=== PATIENT | female | born 1965 | race African-American/Black ===

== ENCOUNTER 2016-09-22 13:05 | Observation (INO) | payer MEDICARE ==
[~2016-09-22] VITALS: Ht 167.6 cm; Wt 150.0 kg
[2016-09-22] VITALS (7 sets, daily range): BP systolic 143–196; BP diastolic 68–96; PULSE 100–110; RESP 16–24; TEMP 98.4–98.7; O2SAT 93–99
[~2016-09-22 13:05] MED LIST: ALBUAER3 INH; BETH10TA2 PO; CALC500C6 CHEW; COLA100C3 PO; DICY10CA12 PO; FURO1TAB62 PO; GABA300C5 PO; HYDR-3366 PO; LEVEMIR SQ; LISI40TA PO; METF500T PO; METO25TA3 PO; POTA-243 PO; VITA10002 PO; VITA100T54 PO
--- NOTE | 2016-09-22 14:08 | PD ---
Physical Exam Date Seen by Provider: September 22, 2016 Time Seen by Provider: 14:00 Narrative 51 y/o female with left sided chest pain, tingling, and pain into left arm, as well as chest pain. Pain is Sharp. Symptoms started 5 days ago, but has been getting worse over the weekend. No fever. Pain 5-6/10 now at rest. Worse with exertion. No improvement with Albuterol. Hx Heart Murmur at with yearly echocardiogram. hx Tachycardia. Hx type 2 dm. Hx Gastroparesis. B/P is elevated in triage. EKG ordered. Data Data Last Documented VS Vital Signs Date Time Temp Pulse Resp B/P Pulse Ox O2 Delivery O2 Flow Rate FiO2 09/22/16 13:07 98.4 108 24 196/96 98 Room Air [facility] Medical Record Reviewed: Yes Supervised Visit with SYLVAIN: Yes Condition: Stable Taran Motta September 22, 2016 14:07
[2016-09-22] MEDS ORDERED: SODIUM CHLORIDE 0.9% FLUSH 10 ML FLUSH IVF PRN (14:15)
[2016-09-22 14:28] LABS: AUTOMATED NEUTROPHIL # 3.7 TH/MM3 (1.8-7.7); BASOPHIL # 0.1 TH/MM3 (0-0.2); BASOPHIL % 1.2 % (0.0-2.0); EOSINOPHIL # 0.1 TH/MM3 (0-0.4); EOSINOPHIL % 1.7 % (0.0-4.0); HEMATOCRIT 35.9 % (35.0-46.0); HEMO FLAGS DIFF FINAL; LYMPH % 29.6 % (9.0-44.0); LYMPHOCYTE # 1.9 TH/MM3 (1.0-4.8); MEAN CELL VOLUME 82.8 FL (80.0-100.0); MEAN CORPUSCULAR HEMOGLOBIN 26.2 PG (27.0-34.0); MEAN CORPUSCULAR HGB CONC 31.6 % (32.0-36.0); NEUT % 57.5 % (16.0-70.0); PLATELET COUNT 290 TH/MM3 (150-450); RED BLOOD COUNT 4.33 MIL/MM3 (4.00-5.30); RED CELL DISTRIBUTION WIDTH 17.2 % (11.6-17.2); WHITE BLOOD COUNT 6.4 TH/MM3 (4.0-11.0)
[2016-09-22 14:35] LABS: APTT (PATIENT) 26.4 SEC (24.3-30.1); INTERNATIONAL NORMALIZED RATIO 0.9 RATIO; PROTHROMBIN TIME - PATIENT 10.1 SEC (9.8-11.6)
[2016-09-22 14:48] LABS: ANION GAP 5 MEQ/L (5-15); BICARBONATE 31.8 MEQ/L (21.0-32.0); BLOOD UREA NITROGEN 8 MG/DL (7-18); CHLORIDE 103 MEQ/L (98-107); GLOMERULAR FILTRATION RATE 95 ML/MIN (>89); MAGNESIUM 1.9 MG/DL (1.5-2.5); POTASSIUM 3.8 MEQ/L (3.5-5.1); SODIUM (NA) 140 MEQ/L (136-145)
[2016-09-22 14:53] LABS: CREATINE KINASE 152 U/L (26-192)
[2016-09-22 15:05] LABS: CKMB 1.7 NG/ML (0.5-3.6)
--- NOTE | 2016-09-22 15:18 | RADRPT ---
EXAM DATE/TIME: 09/22/2016 15:07 [facility] COMPARISON: No previous studies available for comparison. INDICATIONS : Pain in left chest, left arm and leg edema, short of breath MEDICAL HISTORY : pneumonia SURGICAL HISTORY : None. ENCOUNTER: Initial ACUITY: 4 - 6 days PAIN SCORE: 6/10 LOCATION: Left chest FINDINGS: AP and lateral views of the chest demonstrate the lungs to be symmetrically aerated without evidence of mass, infiltrate or effusion. The cardiomediastinal contours are unremarkable. Osseous structure s are intact. CONCLUSION: No acute disease. Linwood Schaeffer MD FACR on September 22, 2016 at 15:14 Board Certified Radiologist. This report was verified electronically.
[2016-09-22] MEDS ORDERED: HYDR-3580 PO (15:24)
[2016-09-22] MEDS ORDERED: BENZ1CAP34 PO (15:24)
[2016-09-22] MEDS ORDERED: ESOM1CAP6 PO (15:24)
[2016-09-22] MEDS ORDERED: CITRTAB7 PO (15:24)
[2016-09-22] MEDS ORDERED: GLIM2TAB PO (15:24)
[2016-09-22] MEDS ORDERED: ERGO1CAP10 PO (15:24)
[2016-09-22] MEDS ORDERED: CYCL1TAB29 PO (15:24)
[2016-09-22] MEDS ORDERED: FUROSEMIDE 40 MG/4 ML VIAL IVP ONE (15:30)
--- NOTE | 2016-09-22 15:42 | PD ---
HPI Chief Complaint: Cardiac Complaint Time Seen by Provider: 15:33 Travel History International Travel<30 days: No Contact w/Intl Traveler<30days: No Traveled to known affect area: No History of Present Illness HPI Patient is a 51-year-old female presenting to emergency for evaluation of chest pain. Patient states it started 5 days ago, on Thursday it started getting more consistent. Patient states the pain is in her left chest radiating to her left arm and around her left breast. She reports new onset shortness of breath with exertion reporting that she can only walk approximately 20 feet without getting tired. Patient states she has been using her albuterol inhaler due to the shortness of breath with no relief or improvement of symptoms. She also started taking Nexium [id number] assuming the pain was from acid reflux, again she had no relief of her symptoms with this medication. She'll he patient reports nausea, abdominal bloating. Denies any vomiting, diarrhea, headache. Patient reports that she had a heart murmur as a child and had been receiving yearly echocardiograms until a few years ago, she cannot remember the last time one was performed. At that time she was followed by Dr. Bob Romero the [facility]. His reports taking Lasix as needed for peripheral edema, she has not taken any recently. Past medical history significant for hypertension, type 2 diabetes, gastroparesis, asthma, DVT, hyperlipidemia, heart murmur, obesity. PFSH Past Medical History Arthritis: Yes Asthma: Yes Autoimmune Disease: No Anxiety: No Depression: No Heart Rhythm Problems: No Cancer: No Cardiac Catheterization: Yes High Cholesterol: Yes Chemotherapy: No Chest Pain: No Congestive Heart Failure: No COPD: No Cerebrovascular Accident: Yes (tia 2007) Diabetes: Yes Patient Takes Glucophage: Yes Diminished Hearing: No Gastrointestinal Disorders: Yes (GASTROPARESIS) GERD: Yes Glaucoma: Yes Genitourinary: No Hepatitis: No Hiatal Hernia: Yes Hypertension: Yes Immune Disorder: No Kidney Stones: No Respiratory: No Migraines: No Myocardial Infarction: No Radiation Therapy: No Renal Failure: No Seizures: No Sleep Apnea: Yes (NO CPAP) Thyroid Disease: No Ulcer: No ?: Not Menopausal: Yes : 1 Para: 1 Miscarriage: 0 : 0 Past Surgical History Abdominal Surgery: Yes (GASTRIC BYPASS, LOUISE N Y, BOWEL RESECTION, REPAIR UMBILICAL HERNIA) AICD: No Appendectomy: No Body Medical Devices: MESH UPPER AND LOWER ABDOMEN Cardiac Surgery: No Section: Yes Cholecystectomy: Yes Ear Surgery: No Endocrine Surgery: No Eye Surgery: No Genitourinary Surgery: No Hysterectomy: Yes (still have ovaries) Joint Replacement: Yes (05/14/15 RTK) Neurologic Surgery: No Oral Surgery: No Pacemaker: No Thoracic Surgery: No Tonsillectomy: Yes Social History Alcohol Use: No Tobacco Use: No Substance Use: No Allergies-Medications (Allergen,Severity, Reaction): Coded Allergies: No Known Allergies (Verified , 09/22/16) NKA Reported Meds & Prescriptions Reported Meds & Active Scripts Active Reported Benzonatate 200 Mg Cap 200 Mg PO TID PRN Glimepiride 2 Mg Tab 2 Mg PO BIDAC Flexeril (Cyclobenzaprine HCl) 10 Mg Tab 10 Mg PO HS Citracal + D3 Maximum (Calcium Citrate-Vitamin D) 315-250 Mg-Unit Tab 1 Tab PO BID Nexium 24 HR (Esomeprazole DR) 20 Mg Capdr 20 Mg PO DAILY Hydrocodone-Acetaminophen 7.5-325 mg Tab 1 Tab PO TID PRN Vitamin D (Ergocalciferol) 50,000 Unit Cap 50,000 Units PO Q7D Levemir Inj (Insulin Detemir) 1,000 unit/ 10 ML Vial 10 Units SQ DAILY Do not mix with any other Insulin. Bethanechol 10 Mg Tab 10 Mg PO TID Dicyclomine (Dicyclomine HCl) 10 Mg Cap 10 Mg PO TID Colace (Docusate Sodium) 100 Mg Cap 100 Mg PO DAILY Lasix (Furosemide) 20 Mg Tab 20 Mg PO DAILY Gabapentin 300 Mg Cap 300 Mg PO HS Lisinopril 40 Mg Tab 40 Mg PO DAILY Metformin (Metformin HCl) 500 Mg Tab 1,000 Mg PO BIDPC With meals Metoprolol Tartrate 25 Mg Tab 75 Mg PO BID Vitamin B-12 (Cyanocobalamin) 1,000 Mcg Tab 1,000 Mcg PO DAILY Klor-Con 10 (Potassium Chloride) 10 Meq Tab 10 Meq PO BID Proair Hfa 8.5 GM Inh (Albuterol Sulfate) 90 Mcg/Act Aer 2 Puff INH Q4-6H PRN 108 mcg/actuation Review of Systems Except as stated in HPI: all other systems reviewed are Neg General / Constitutional: No: Fever, Chills HENT: No: Headaches, Lightheadedness Cardiovascular: Positive: Chest Pain or Discomfort, Tachycardia, Dyspnea on exertion, Edema Respiratory: Positive: Shortness of Breath Gastrointestinal: Positive: Nausea, No: Vomiting, Diarrhea, Abdominal Pain Genitourinary: No: Dysuria Neurologic: No: Weakness, Dizziness, Syncope, Focal Abnormalities, Change in Mentation Physical Exam Narrative GENERAL: Obese, well-developed, alert female. Resting comfortably in no acute distress. SKIN: Focused skin assessment warm/dry. HEAD: Atraumatic. Normocephalic. EYES: Pupils equal and round. No scleral icterus. No injection or drainage. ENT: No nasal bleeding or discharge. Mucous membranes pink and moist. NECK: Trachea midline. No JVD. CARDIOVASCULAR: Regular rate and rhythm. 2/6 systolic murmur appreciated. RESPIRATORY: No accessory muscle use. Clear to auscultation. Breath sounds equal bilaterally, slightly diminished in bases. GASTROINTESTINAL: Abdomen soft, non-tender, nondistended. Hepatic and splenic margins not palpable. MUSCULOSKELETAL: No obvious deformities. No clubbing. No cyanosis. No edema. Positive pedal pulses, brisk less than 3 second capillary refill. NEUROLOGICAL: Awake and alert. No obvious cranial nerve deficits. Motor grossly within normal limits. Normal speech. PSYCHIATRIC: Appropriate mood and affect; insight and judgment normal. Data Data Last Documented VS Vital Signs Date Time Temp Pulse Resp B/P Pulse Ox O2 Delivery O2 Flow Rate FiO2 09/22/16 15:12 99 Room Air 09/22/16 15:12 22 09/22/16 13:07 98.4 108 196/96 Orders Electrocardiogram (09/22/16 14:05) Basic Metabolic Panel (Bmp) (09/22/16 14:09) B-Type Natriuretic Peptide (09/22/16 14:09) Ckmb (Isoenzyme) Profile (09/22/16 14:09) Complete Blood Count With Diff (09/22/16 14:09) Magnesium (Mg) (09/22/16 14:09) Prothrombin Time / Inr (Pt) (09/22/16 14:09) Act Partial Throm Time (Ptt) (09/22/16 14:09) Troponin I (09/22/16 14:09) Ecg Monitoring (09/22/16 14:09) Bilateral Bp Monitoring (09/22/16 14:09) Iv Access Insert/Monitor (09/22/16 14:09) Oximetry (09/22/16 14:09) Oxygen Administration (09/22/16 14:09) Sodium Chloride 0.9% Flush (Ns Flush) (09/22/16 14:15) CKMB (09/22/16 14:17) CKMB% (09/22/16 14:17) Chest, Ap & Lat (09/22/16 14:09) Furosemide Inj (Lasix Inj) (09/22/16 15:30) Admit Order (Ed Use Only) (09/22/16 15:52) Labs Laboratory Tests Test 09/22/16 14:17 White Blood Count 6.4 TH/MM3 Red Blood Count 4.33 MIL/MM3 Hemoglobin 11.3 GM/DL Hematocrit 35.9 % Mean Corpuscular Volume 82.8 FL Mean Corpuscular Hemoglobin 26.2 PG Mean Corpuscular Hemoglobin 31.6 % Concent Red Cell Distribution Width 17.2 % Platelet Count 290 TH/MM3 Mean Platelet Volume 7.9 FL Neutrophils (%) (Auto) 57.5 % Lymphocytes (%) (Auto) 29.6 % Monocytes (%) (Auto) 10.0 % Eosinophils (%) (Auto) 1.7 % Basophils (%) (Auto) 1.2 % Neutrophils # (Auto) 3.7 TH/MM3 Lymphocytes # (Auto) 1.9 TH/MM3 Monocytes # (Auto) 0.6 TH/MM3 Eosinophils # (Auto) 0.1 TH/MM3 Basophils # (Auto) 0.1 TH/MM3 CBC Comment DIFF FINAL Differential Comment Prothrombin Time 10.1 SEC Prothromb Time International 0.9 RATIO Ratio Activated Partial 26.4 SEC Thromboplast Time Sodium Level 140 MEQ/L Potassium Level 3.8 MEQ/L Chloride Level 103 MEQ/L Carbon Dioxide Level 31.8 MEQ/L Anion Gap 5 MEQ/L Blood Urea Nitrogen 8 MG/DL Creatinine 0.77 MG/DL Estimat Glomerular Filtration 95 ML/MIN Rate Random Glucose 128 MG/DL Calcium Level 8.9 MG/DL Magnesium Level 1.9 MG/DL Total Creatine Kinase 152 U/L Creatine Kinase MB 1.7 NG/ML Troponin I LESS THAN 0.02 NG/ML B-Type Natriuretic Peptide 7 PG/ML MDM Medical Decision Making Medical Screen Exam Complete: Yes Emergency Medical Condition: Yes Interpretation(s) Vital Signs Date Time Temp Pulse Resp B/P Pulse Ox O2 Delivery O2 Flow Rate FiO2 09/22/16 15:12 99 Room Air 09/22/16 15:12 22 99 Room Air 09/22/16 13:07 98.4 108 24 196/96 98 Room Air Differential Diagnosis Congestive heart failure versus AMI versus electrolyte abnormality versus musculoskeletal pain versus pleurisy versus pneumonia versus other Narrative Course Patient is a 51-year-old female presenting to the emergency department on the advice of her primary doctor for evaluation of chest pain. Pain started 5 days ago, initial set of cardiac enzymes are negative. Blood pressure was elevated while in triage, currently is 168/74 , heart rate is in the upper 80s. Patient did not take her blood pressure medications today and is requesting to take them. CBC is unremarkable Chemistry is unremarkable BNP 7 Coags are Unremarkable. Chest x-ray shows no acute disease. Lisinopril 20 mg by mouth and Lasix 40mg IV x 1 dose ordered. Due to patient's past medical history as well as her presenting symptoms and it is reasonable to place patient in observation in the chest pain center. Admit order placed, patient is agreeable. Diagnosis Primary Impression: Atypical chest pain Admitting Information Admitting Physician Requests: Observation Condition: Stable Miranda Kumar September 22, 2016 15:42
[2016-09-22] MEDS ORDERED: LISINOPRIL 20 MG TAB PO ONE (16:15)
[2016-09-22] MEDS ORDERED: ACETAMINOPHEN 500 MG CPLT PO PRN (16:30)
[2016-09-22] MEDS ORDERED: ONDANSETRON HCL 4 MG/2 ML VIAL IV PRN (16:30)
[2016-09-22] MEDS ORDERED: NITROGLYCERIN 0.4 MG SL 25 TABS/BTL SL PRN (16:30)
--- NOTE | 2016-09-22 16:57 | HHI.HP ---
[facility] Primary Care Physician Pratik Bruno MD Chief Complaint Chest pain History of Present Illness 51-year-old female with history diabetes, hypertension, hyperlipidemia, gastroparesis, asthma, and GERD presents to emergency room for further evaluation of multiple complaints including exertional shortness of breath, "whole left side swollen," and chest pain. Onset Thursday and noticed swelling of left side of body. Thursday morning she developed chest pain in left anterior chest described as quick, sharp pains. Duration 5-10 seconds. No radiation of pain however left arm was also "tingling" intermittently. No associated symptoms. Breathing did not make pain better or worse. No known trauma to chest wall. No known precipitating or relieving factors. Denies similar chest discomfort in the past. Endorses shortness of breath on exertion past few days. States chest pain and shortness of breath does not occur concurrently. She has been told she has asthma but she does not believe she has asthma. Has an albuterol inhaler and endorse increase in frequency over past few days. No recent fevers, chills, or illness. Also concerned left "whole body" is swollen and larger than right side of body. No change in ROM. Review of Systems General: No fatigue,weakness, fever, chills, or recent illness. HEENT: No BARBER, no vision changes, no nasal congestion or drainage, no dysphasia CV: As stated above. Denies any current chest pain or pressure. No palpitations or dizziness RESP: No SOB, cough, wheeze. History of asthma, however she does not believe she has asthma. GI: No nausea, vomiting, bowel changes, diarrhea, constipation, pain, distention , melena, blood in the stool. No change in appetite, no unintentional weight gain or weight loss. : No dysuria, urgency, frequency EXT: Reports left lower extremity, left arm, left breast, left flank swollen since Thursday. No paraesthesias MS: No discomfort no trauma, no recent fall, or change in ROM NEURO: No change in memory, dizziness, difficulty with balance, LOC, motor/ sensory deficits PSYCH: No anxiety or depression SKIN: No rashes, no concerning lesions Past Family Social History Allergies: Coded Allergies: No Known Allergies (Verified , 09/22/16) NKA Past Medical History Diabetes, peripheral neuropathy, GERD, gastroparesis, hypertension, hyperlipidemia, obesity, sleep apnea, asthma, DVT Past Surgical History Right total knee replacement, gastric bypass, umbilical hernia repair, hysterectomy, cholecystectomy Reported Medications Active Reported Benzonatate 200 Mg Cap 200 Mg PO TID PRN Glimepiride 2 Mg Tab 2 Mg PO BIDAC Flexeril (Cyclobenzaprine HCl) 10 Mg Tab 10 Mg PO HS Citracal + D3 Maximum (Calcium Citrate-Vitamin D) 315-250 Mg-Unit Tab 1 Tab PO BID Nexium 24 HR (Esomeprazole DR) 20 Mg Capdr 20 Mg PO DAILY Hydrocodone-Acetaminophen 7.5-325 mg Tab 1 Tab PO TID PRN Vitamin D (Ergocalciferol) 50,000 Unit Cap 50,000 Units PO Q7D Levemir Inj (Insulin Detemir) 1,000 unit/ 10 ML Vial 10 Units SQ DAILY Do not mix with any other Insulin. Bethanechol 10 Mg Tab 10 Mg PO TID Dicyclomine (Dicyclomine HCl) 10 Mg Cap 10 Mg PO TID Colace (Docusate Sodium) 100 Mg Cap 100 Mg PO DAILY Lasix (Furosemide) 20 Mg Tab 20 Mg PO DAILY Gabapentin 300 Mg Cap 300 Mg PO HS Lisinopril 40 Mg Tab 40 Mg PO DAILY Metformin (Metformin HCl) 500 Mg Tab 1,000 Mg PO BIDPC With meals Metoprolol Tartrate 25 Mg Tab 75 Mg PO BID Vitamin B-12 (Cyanocobalamin) 1,000 Mcg Tab 1,000 Mcg PO DAILY Klor-Con 10 (Potassium Chloride) 10 Meq Tab 10 Meq PO BID Proair Hfa 8.5 GM Inh (Albuterol Sulfate) 90 Mcg/Act Aer 2 Puff INH Q4-6H PRN 108 mcg/actuation Active Ordered Medications Current Medications Medications (Trade) Dose Ordered Sig/Hsalom Route Start Time Stop Time Status Last Admin (Tylenol) 500 mg Q4H PRN PO 09/22/16 16:30 (Zofran Inj) 4 mg Q6H PRN IV 09/22/16 16:30 (Nitrostat Sl) 0.4 mg Q5M PRN SL 09/22/16 16:30 (Aspirin) 325 mg DAILY PO 09/23/16 09:00 Family History BrotherCABG age 56 Social History Known hypertension, diabetes, and hyperlipidemia Lifelong nonsmoker. Denies any alcohol or illegal drug use. Normally active and can walk further distances without becoming short of breath. Ambulates independently without cane or walker. Past cardiac testing 06/04/15 Lucía scan negative for ischemia, hypokinesis of septal wall. EF 70%. Physical Exam Vital Signs Vital Signs Date Time Temp Pulse Resp B/P Pulse Ox O2 Delivery O2 Flow Rate FiO2 09/22/16 16:45 97 21 09/22/16 15:12 99 Room Air 09/22/16 15:12 22 99 Room Air 09/22/16 13:07 98.4 108 24 196/96 98 Room Air Physical Exam GENERAL: Alert WN, WD, NAD, pleasant, morbidly obese female HEAD: NC, AT EYES: Sclera clear, conjunctiva without injection NECK: Supple, no masses, trachea midline CV: RRR, without murmur, rub, gallop, no JVD, S1-S2 no S3-S4. RESP: Expiratory wheeze throughout, no crackles or rhonchi. symmetrical chest rise, nonlabored, able to speak in full sentences ABD: Soft, NT, ND, no masses, obese, positive bowel tones EXT: Pulses +24, +1 pitting dependent edema bilateral lower extremities. No significant left arm/breast/shoulder/abdomen edema compared to right. MS: Normal tone 4 extremities, nontender, no obvious deformities, full range of motion NEURO: CN II through CN XII grossly intact, motor strength 5/5, gait WNL PSYCH: A+O 3, pleasant affect, appropriate speech, appropriate mood and affect , insight and judgment SKIN: Normal turgor, normal texture, no lesions, no rashes, brisk cap refill, even hair distribution Laboratory Laboratory Tests Test 09/22/16 14:17 White Blood Count 6.4 Red Blood Count 4.33 Hemoglobin 11.3 Hematocrit 35.9 Mean Corpuscular Volume 82.8 Mean Corpuscular Hemoglobin 26.2 Mean Corpuscular Hemoglobin 31.6 Concent Red Cell Distribution Width 17.2 Platelet Count 290 Mean Platelet Volume 7.9 Neutrophils (%) (Auto) 57.5 Lymphocytes (%) (Auto) 29.6 Monocytes (%) (Auto) 10.0 Eosinophils (%) (Auto) 1.7 Basophils (%) (Auto) 1.2 Neutrophils # (Auto) 3.7 Lymphocytes # (Auto) 1.9 Monocytes # (Auto) 0.6 Eosinophils # (Auto) 0.1 Basophils # (Auto) 0.1 CBC Comment DIFF FINAL Differential Comment Prothrombin Time 10.1 Prothromb Time International 0.9 Ratio Activated Partial 26.4 Thromboplast Time Sodium Level 140 Potassium Level 3.8 Chloride Level 103 Carbon Dioxide Level 31.8 Anion Gap 5 Blood Urea Nitrogen 8 Creatinine 0.77 Estimat Glomerular Filtration 95 Rate Random Glucose 128 Calcium Level 8.9 Magnesium Level 1.9 Total Creatine Kinase 152 Creatine Kinase MB 1.7 Troponin I LESS THAN 0.02 B-Type Natriuretic Peptide 7 Result Diagram: 09/22/16 1417 09/22/16 1417 Imaging Last Impressions Chest X-Ray 09/22/16 1409 Signed Impressions: Service Date/Time: Thursday, September 22, 2016 15:07 - CONCLUSION: No acute disease. Linwood Schaeffer MD FACR Course EKG First EKG showed normal sinus tachycardia, normal axis, no ST or T-segment changes Assessment and Plan Assessment and Plan #1 Chest painadmitted to chest pain center. Will rule out with 3 sets of EKGs and cardiac enzymes. Seen and evaluated by Dr. Bob Romero. If ruled out with EKGs and cardiac enzymes plan for chemical stress test in a.m. Patient is agreeable to plan a care. #2 Asthma exacerbationSolu-Medrol 125 mg IV 1 dose now, albuterol respiratory treatments every 6 hours and every 2 when necessary #3 Diabetessliding scale insulin coverage, hold glipizide, metformin, and Levemir #4 Hypertensioncontinue metoprolol, lisinopril #5 GERDcontinue esomeprazole #6 Peripheral neuropathycontinue gabapentin Libby Childers September 22, 2016 16:57
[2016-09-22] MEDS ORDERED: GLUCAGON 1 MG/ML VIAL OTHER PRN (17:00)
[2016-09-22] MEDS ORDERED: DEXTROSE 50% IN WATER 50 ML VIAL(D50) IV PUSH PRN (17:00)
[2016-09-22] MEDS ORDERED: RESP: ALBUTEROL 2.5 MG/3 ML NEB (PRN) NEB (17:00)
[2016-09-22] MEDS ORDERED: methylPREDNISolone SOD SUCC 125 MG/2 ML VIAL IV PUSH ONE (17:00)
[2016-09-22 18:50] LABS: CREATINE KINASE 143 U/L (26-192)
[2016-09-22 19:03] LABS: CKMB 0.8 NG/ML (0.5-3.6)
[2016-09-22] MEDS: RESP: ALBUTEROL 2.5 MG/3 ML NEB (SCH) NEB (19:35)
[2016-09-22] MEDS ORDERED: GABAPENTIN 300 MG CAP PO SCH (21:00)
[2016-09-22] MEDS ORDERED: CYCLOBENZAPRINE HCL 10 MG TAB PO SCH (21:00)
[2016-09-22] MEDS: INSULIN ASPART SUPPLEMENTAL SCALE SQ SCH (21:12)
[2016-09-22] MEDS: POTASSIUM CHLORIDE 10 MEQ CONTROLLED RELEASE TAB PO SCH (21:13)
[2016-09-22] MEDS: METOPROLOL TARTRATE 25 MG TAB PO SCH (21:16)
[2016-09-22] MEDS: SODIUM CHLORIDE 0.9% FLUSH 10 ML FLUSH IV FLUSH SCH (21:16)
[2016-09-22 21:39] LABS: CREATINE KINASE 138 U/L (26-192)
[2016-09-22 21:51] LABS: CKMB 0.8 NG/ML (0.5-3.6)
[2016-09-23] VITALS (9 sets, daily range): BP systolic 124–139; BP diastolic 64–78; PULSE 82–96; RESP 18–20; TEMP 97.6–97.8; O2SAT 93–98
[2016-09-23] MEDS: RESP: ALBUTEROL 2.5 MG/3 ML NEB (SCH) NEB ×2 (03:01→10:00)
[2016-09-23] MEDS: INSULIN ASPART SUPPLEMENTAL SCALE SQ SCH ×2 (05:58→13:29)
[2016-09-23] MEDS: METOPROLOL TARTRATE 25 MG TAB PO SCH (08:37)
[2016-09-23] MEDS ORDERED: DOCUSATE SODIUM 100 MG CAP PO SCH (09:00)
[2016-09-23] MEDS ORDERED: PANTOPRAZOLE SOD 20 MG DELAYED RELEASE TAB PO SCH (09:00)
[2016-09-23] MEDS ORDERED: ASPIRIN 325 MG TAB PO SCH (09:00)
[2016-09-23] MEDS ORDERED: LISINOPRIL 20 MG TAB PO SCH (09:00)
[2016-09-23] MEDS ORDERED: FUROSEMIDE 20 MG TAB PO SCH (09:00)
[2016-09-23] MEDS ORDERED: REGADENOSON INJ 0.4 MG/5 ML SYR ONE (09:23)
[2016-09-23] MEDS: SODIUM CHLORIDE 0.9% FLUSH 10 ML FLUSH IV FLUSH SCH (11:17)
[2016-09-23] MEDS: DICYCLOMINE HCL 10 MG CAP PO SCH ×2 (11:18→13:00)
[2016-09-23] MEDS: BETHANECHOL CHL 10 MG TAB PO SCH ×2 (11:18→13:00)
[2016-09-23] MEDS: POTASSIUM CHLORIDE 10 MEQ CONTROLLED RELEASE TAB PO SCH (11:19)
--- NOTE | 2016-09-23 11:49 | RADRPT ---
EXAM DATE/TIME: 09/23/2016 09:16 [facility] COMPARISON: MYOCARDIAL PERF PHARM SPECT, GATED W/EF, June 04, 2015, 10:21. INDICATIONS : Substernal chest pain with dyspnea. Angina. DOSE: 35.0 mCi Tc99m Myoview at stress. 11.0 mCi Tc99m Myoview at rest. 0.4 mg Lexiscan STRESS SYMPTOMS: Nausea and heart racing. EJECTION FRACTION: 65% MEDICAL HISTORY : Hypertension. Diabetes mellitus type 2. Gastroesophageal reflux disease. Asthma. SURGICAL HISTORY : Hysterectomy. Cholecystectomy. Total knee replacement, right. Gastric bypass. ENCOUNTER: Initial ACUITY: 1 day PAIN SCALE: 7/10 LOCATION: Substernal chest TECHNIQUE: The patient underwent pharmacologic stress with infusion of prescribed dose. Continuous ECG tracing was monitored during stress. Gated SPECT imaging was performed after stress and conventional SPECT i maging was performed at rest. The examination was performed on a SPECT/CT scanner, both attenuation and non-corrected datasets were reviewed. FINDINGS: DISTRIBUTION: The maximum perfused segment at stress is in the anterior wall. PERFUSION STUDY: The pattern of perfusion at stress is within normal limits. GATED STUDY: There is intact wall motion and thickening without hypokinetic or dyskinetic segments. CONCLUSION: 1. Unremarkable myocardial perfusion scan. RISK CATEGORY: Low (<1% Annual Mortality Rate) Bob Ruiz MD on September 23, 2016 at 11:46 Board Certified Radiologist. This report was verified electronically.
--- NOTE | 2016-09-23 12:35 | HHI.DCPOC ---
Discharge Care Plan Diagnosis: (1) Chest pain (2) HTN (hypertension), benign (3) Diabetes (4) Asthma Goals to Promote Your Health * To prevent worsening of your condition and complications * To maintain your health at the optimal level Directions to Meet Your Goals Take your medications as prescribed Follow your dietary instruction Follow activity as directed Keep your appointments as scheduled Take your immunizations and boosters as scheduled If your symptoms worsen call your PCP, if no PCP go to Urgent Care Center or Emergency Room Smoking is Dangerous to Your Health. Avoid second hand smoke Call the 24-hour hour crisis hotline for domestic abuse at [facility] Thornton September 23, 2016 12:35
--- NOTE | 2016-09-23 17:22 | TR ---
Date Performed: 09/23/2016 Time Performed: 10:03:09 DOCTOR: Nora Garcia DRUG LIST: CLINICAL HISTORY: REASON FOR TEST: Angina REASON FOR ENDING: OBSERVATION: CONCLUSION: Lexiscan stress test was performed under standard four minute protocol. Radionuclid e was injected one minute prior to ending the test. No electrocardiographic abormalities were present to suggest ischemia. Nuclear imaging and interpretation are pending. COMMENTS:
--- NOTE | 2016-09-23 17:31 | EKG ---
Date Performed: 09/22/2016 Time Performed: 14:13:57 PTAGE: 51 years EKG: SINUS TACHYCARDIA ABNORMAL RHYTHM ECG PREVIOUS TRACING : 06/04/2015 01.46 Since previous tracing, no significant change noted DOCTOR: Nora Garcia Interpretating Date/Time 09/23/2016 17:29:09
--- NOTE | 2016-09-23 17:32 | EKG ---
Date Performed: 09/22/2016 Time Performed: 17:13:41 PTAGE: 51 years EKG: SINUS TACHYCARDIA ABNORMAL RHYTHM ECG Since PREVIOUS TRACING , no significant change noted PREVIOUS TRACIN09/22/2016 14.13 DOCTOR: Nora Garcia Interpretating Date/Time 09/23/2016 17:30:36
--- NOTE | 2016-09-23 17:33 | EKG ---
Date Performed: 09/22/2016 Time Performed: 20:25:21 PTAGE: 51 years EKG: SINUS TACHYCARDIA ABNORMAL RHYTHM ECG Since PREVIOUS TRACING , no significant change noted PREVIOUS TRACIN09/22/2016 17.13 DOCTOR: Nora Garcia Interpretating Date/Time 09/23/2016 17:31:50
== END 2016-09-23 14:47 | disposition home or self-care (01) ==
LOC: NEPC 13:05 → NEDA 15:54 → NEPFCDU 18:48
PROVIDERS: ADMIT Internal Medicine Cardiovascular Disease; ATTEND Internal Medicine Cardiovascular Disease
DX: R07.89 Other chest pain (principal); J45.901 Unspecified asthma with (acute) exacerbation; E11.42 Type 2 diabetes mellitus with diabetic polyneuropathy; I10 Essential (primary) hypertension; K21.9 Gastro-esophageal reflux disease without esophagitis; K31.84 Gastroparesis; J45.909 Unspecified asthma, uncomplicated; E78.5 Hyperlipidemia, unspecified; I82.509 Chronic embolism and thrombosis of unspecified deep veins of unspecified lower extremity; G47.30 Sleep apnea, unspecified; Z98.84 Bariatric surgery status; Z96.651 Presence of right artificial knee joint
CPT/HCPCS: 71020; 78452; 80048; 82550; 82552; 82948; 83735; 83880; 84484; 85025; 85610; 85730; 93005; 93017; 94640; 94664; 99285; A9502; G0378; J1815; J1940; J2785; J2930; J7613

== ENCOUNTER 2016-10-22 14:10 | Inpatient (IN) | payer MEDICARE, MEDICAID ==
[~2016-10-22] VITALS: Ht 167.6 cm; Wt 174.0 kg
[~2016-10-22 14:10] MED LIST changes: -ALBUAER3 INH; -CALC500C6 CHEW; +CITRTAB7 PO; -COLA100C3 PO; -HYDR-3366 PO; +HYDR-3580 PO; -LEVEMIR SQ; -VITA100T54 PO
--- NOTE | 2016-10-23 11:07 | MH ---
cc: Brandi ABDI M.D. DATE OF ADMISSION: 11/03/2016 DATE OF ADMISSION FOR SURGERY 11/03/2016 ADMISSION DIAGNOSIS Osteoarthritic degeneration left knee now being admitted for left total knee arthroplasty admission. HISTORY AND PHYSICAL This pleasant 51-year-old female is being admitted today for left total knee arthroplasty due to severe painful osteoarthritic degeneration of the left knee. PAST MEDICAL HISTORY Other past history: 1. The patient has history of arthritis. 2. Diabetes. 3. Heart murmur. 4. Hypertension. 5. Sleep apnea. CURRENT MEDICATIONS Include: 1. Benavides. 2. Metoprolol. 3. Metformin. PAST SURGICAL HISTORY Previous surgeries include: 1. Hysterectomy. 2. Hernia repair. 3. Tonsillectomy. SOCIAL HISTORY The patient does not smoke or drink. REVIEW OF SYSTEMS Noncontributory. FAMILY HISTORY Noncontributory. ALLERGIES NO KNOWN ALLERGIES. PHYSICAL EXAMINATION GENERAL: We find a 51-year-old female well-developed, well-nourished, alert and oriented times three complaining of pain in her left knee. VITAL SIGNS: Blood pressure 124/72, pulse 90 and regular, respirations 16, temperature 97.9, pulse oximetry 98% on room air. HEENT: Eyes PERRL, EOMI. Ears, nose, mouth clear. NECK: Supple. LUNGS: Clear. HEART: Regular rate. ABDOMEN: Soft. Positive bowel sounds and nontender. EXTREMITIES: Reveal the left knee to be tender with crepitance on range of motion. She is neurovascularly intact to her toes. IMPRESSION Severe painful osteoarthritic degeneration left knee. PLAN Admission for left total knee arthroplasty today. The patient understands the procedure well and risks involved and plans on going to rehab after surgery. She understands to use Hibiclens scrub and Bactroban preoperatively. MD NATANAEL Lang/[place] /6:14 PM /11:02 AM
[2016-10-27] MEDS ORDERED: NOVONP2 SQ ×2 (10:40)
[2016-10-27] MEDS ORDERED: PULM180I INH (10:40)
[2016-10-27] MEDS ORDERED: LEVEMIR SQ (10:40)
[2016-10-27] MEDS ORDERED: SIMV10TA PO (10:40)
[2016-10-27] MEDS ORDERED: GLIM4TAB PO (10:40)
[2016-10-27] MEDS ORDERED: ALBU.5I NEB (10:40)
[2016-10-27] MEDS ORDERED: FLUT1SPR5 EACH NARE (10:40)
[2016-11-03 12:10] VITALS: BP 129/95; PULSE 125; RESP 18; TEMP 99.2; O2SAT 98
[2016-11-03] MEDS ORDERED: VANCOMYCIN HCL 1000 MG VIAL ONE ×3 (12:23→16:21)
[2016-11-03] MEDS ORDERED: SODIUM CHLOR 0.9% 250 ML INJ 250 ML ONE ×2 (12:23→16:00)
[2016-11-03] MEDS ORDERED: CHLORHEXIDINE GLUCONATE 2 % 1 PACK (2 CLOTHS) TOPICAL PRN (12:30)
[2016-11-03] MEDS ORDERED: POVIDONE IODINE 5% (ANTISEPSIS KIT) 4 APPLICATIONS EACH NARE PRN (12:30)
[2016-11-03] MEDS ORDERED: METOPROLOL TARTRATE 25 MG TAB PO PRN (12:30)
[2016-11-03] MEDS ORDERED: LACTATED RINGER'S 1000 ML IV PRN (12:30)
[2016-11-03] MEDS ORDERED: SODIUM CHLORID 0.9% 500 ML IV PRN (12:30)
[2016-11-03] MEDS ORDERED: INSULIN HUMAN REGULAR 1,000 UNITS/10 ML VIAL SQ PRN (12:30)
[2016-11-03] MEDS ORDERED: METOPROLOL TARTRATE 25 MG TAB ONE (12:37)
[2016-11-03] MEDS ORDERED: CHLORHEXIDINE GLUCONATE 4% SOLN 120 ML BTL TOPICAL SCH (12:45)
[2016-11-03] MEDS ORDERED: METOPROLOL TARTRATE 25 MG TAB PO ONE (12:45)
[2016-11-03] MEDS ORDERED: VANCOMYCIN 1000 MG/NS 250 ML (for <70 kg) IV SCH ×2 (12:45)
[2016-11-03] MEDS ORDERED: ceFAZolin 2 GM PREMIX 50 ML IV SCH (12:45)
[2016-11-03] MEDS ORDERED: ONDANSETRON HCL 4 MG/2 ML VIAL IV PUSH ONE (12:58)
[2016-11-03] MEDS ORDERED: LACTATED RINGER'S 1000 ML INJ 1,000 ML IV ONE (12:58)
[2016-11-03] MEDS ORDERED: PROPOFOL 200 MG/20 ML AMP IV ONE (12:58)
[2016-11-03] MEDS ORDERED: [UNRECOGNIZED DRUG - OTHER] IV SCH ×2 (14:00)
[2016-11-03] MEDS ORDERED: EXPAREL PERI-ARTICULAR INJECTION (TOTAL VOL. 120 ML) P-ARTICULR SCH ×2 (14:00)
[2016-11-03] MEDS ORDERED: TRANEXAMIC ACID IV SCH ×3 (14:00→17:00)
[2016-11-03] MEDS ORDERED: ACETAMINOPHEN 1000 MG/100 ML VIAL IV ONE (14:34)
[2016-11-03] MEDS ORDERED: FAMOTIDINE 20 MG/2 ML VIAL ONE (14:34)
[2016-11-03] MEDS ORDERED: ACETAMINOPHEN 325 MG TAB PO PRN (14:45)
[2016-11-03] MEDS ORDERED: ONDANSETRON HCL 4 MG/2 ML VIAL IVP PRN (14:45)
[2016-11-03] MEDS ORDERED: NALOXONE HCL 0.4 MG/ML AMP IV PRN (14:45)
[2016-11-03] MEDS ORDERED: SODIUM CHLORIDE 0.9% FLUSH 5 ML FLUSH IVF PRN (14:45)
[2016-11-03] MEDS ORDERED: FUROSEMIDE 20 MG TAB PO PRN (14:45)
[2016-11-03] MEDS ORDERED: Post-op Orders (for Pharmacy) MISC XX ONE (14:45)
[2016-11-03] MEDS ORDERED: TRANEXAMIC ACID INJ 0 MG in SODIUM CHLORIDE 0.9% INJ 100 ML IV SCH (14:45)
[2016-11-03] MEDS ORDERED: TEMAZEPAM 15 MG CAP PO PRN (14:45)
[2016-11-03] MEDS ORDERED: ACETAMINOPHEN/HYDROcodone 325 MG/10 MG TAB PO PRN ×2 (14:45)
[2016-11-03] MEDS ORDERED: diphenhydrAMINE HCL 50 MG/ML VIAL IV PRN (14:45)
[2016-11-03] MEDS ORDERED: RESP: ALBUTEROL CONC 2.5 MG/0.5 ML NEB NEB PRN (14:45)
[2016-11-03] MEDS ORDERED: ceFAZolin INJ 1,000 MG VIAL ONE ×2 (14:50→15:55)
[2016-11-03] MEDS ORDERED: WALKER WHEELS/F1 MIS (15:00)
[2016-11-03] MEDS ORDERED: CPMMACHINE (15:00)
[2016-11-03] MEDS ORDERED: ADJUSTABLE COMM1 MIS (15:00)
--- NOTE | 2016-11-03 15:34 | PD.CONS ---
HPI Service [facility] Hospitalists Consult Requested By Primary Care Physician Pratik Bruno MD Diagnoses: History of Present Illness Pt is 51 yo with dm, sinus tach, htn who presented for elective left tka. In past after right tka she developed dvt. Pt reports recent hospitalization for pna and reactive airways and sent home on steroid taper which she completed. Also reports recent problems with bg control. 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 Review of Systems Other knee pain Past Family Social History Past Medical History sinus tach right peroneal dvt dm asthma htn hyperlipidemia gastroparesis gerd dm peripheral neuropathy oa knee gastric darron en y ventral hernia repair intussuseption. lysis of adhesion lap reny right tka right shoulder surgery carpal tunnel right surgery. Reported Medications Simvastatin 10 Mg Tab 10 Mg PO HS Levemir Inj (Insulin Detemir) 1,000 unit/ 10 ML Vial 30 Units SQ HS Do not mix with any other Insulin. novolog with meals and prn Flonase Nasal Bland (Fluticasone Nasal Bland) 50 Mcg/Act Bland 50 Mcg EACH NARE BID Pulmicort Flexhaler (Budesonide Powder Inh) 180 Mcg/Act Inhp 180 Mcg INH Q12HR PRN Albuterol Neb (Albuterol Sulfate) 2.5 Mg/0.5 Ml Neb 2.5 Mg NEB TID NEB PRN Note: The Albuterol Sulfate Inhalation Solution is concentrated and must be diluted. Read complete instructions carefully before using. Citracal + D3 Maximum (Calcium Citrate-Vitamin D) 315-250 Mg-Unit Tab 1 Tab PO BID Hydrocodone-Acetaminophen 7.5-325 mg Tab 1 Tab PO TID PRN Bethanechol 10 Mg Tab 10 Mg PO TID Dicyclomine (Dicyclomine HCl) 10 Mg Cap 10 Mg PO TID Lasix (Furosemide) 20 Mg Tab 20 Mg PO DAILY PRN Gabapentin 300 Mg Cap 300 Mg PO HS Lisinopril 40 Mg Tab 40 Mg PO DAILY Metformin (Metformin HCl) 500 Mg Tab 1,000 Mg PO HS With meals Metoprolol Tartrate 25 Mg Tab 75 Mg PO BID Vitamin B-12 (Cyanocobalamin) 1,000 Mcg Tab 1,000 Mcg PO DAILY Klor-Con 10 (Potassium Chloride) 10 Meq Tab 10 Meq PO BID PRN Allergies: Coded Allergies: No Known Allergies (Verified , 10/27/16) NKA Family History nc Social History no etoh/tob Physical Exam Vital Signs oriented heart reg/tachy lung cta abd s/nt ext no pitting Vital Signs Date Time Temp Pulse Resp B/P Pulse Ox O2 Delivery O2 Flow Rate FiO2 11/03/16 12:10 99.2 125 18 129/95 98 Laboratory Laboratory Tests Test 11/03/16 12:21 Blood Type O POSITIVE Antibody Screen NEGATIVE Crossmatch Leukocyte-Reduced Red Blood Cells Blood Bank Comment Assessment and Plan Problem List: (1) Total knee replacement status Status: Acute Plan: left tka 11/03 for OA post op pain control..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 (4) Gastroparesis Status: Chronic Plan: home meds (5) Asthma Status: Chronic Plan: duonebs prn (6) Sinus tachycardia Status: Chronic Plan: ee above (7) GERD (gastroesophageal reflux disease) Status: Chronic Problem Qualifiers (1) Total knee replacement status: Qualified Code: Z96.652 - Total knee replacement status, left (2) Diabetes: Jah Benson MD Nov 03, 2016 15:34
[2016-11-03] MEDS: INSULIN ASPART SUPPLEMENTAL SCALE SQ SCH ×2 (16:00→20:52)
[2016-11-03] MEDS ORDERED: BUDESONIDE 180 MCG INH PRN (16:00)
[2016-11-03] MEDS ORDERED: RESP: ALBUTEROL 2.5 MG/IPRATROPIUM 0.5 MG NEB (PRN) NEB (16:15)
[2016-11-03] MEDS ORDERED: SODIUM CHLORIDE 0.9% IV SCH (17:00)
[2016-11-03] MEDS ORDERED: DEXTROSE 50% IN WATER 50 ML VIAL(D50) IV PUSH PRN (17:30)
[2016-11-03] MEDS ORDERED: GLUCAGON 1 MG/ML VIAL OTHER PRN (17:30)
[2016-11-03] MEDS: DICYCLOMINE HCL 10 MG CAP PO SCH (18:00)
[2016-11-03] MEDS: BETHANECHOL CHL 10 MG TAB PO SCH (18:00)
[2016-11-03] MEDS: LACTATED RINGER'S 1000 ML INJ 1,000 ML IV SCH (19:05)
[2016-11-03] MEDS ORDERED: SUGAMMADEX SODIUM 200 MG/2 ML VIAL IV PUSH ONE ×2 (19:14)
[2016-11-03] MEDS ORDERED: fentaNYL CITRATE 250 MCG/5 ML AMP ONE (19:14)
[2016-11-03] MEDS ORDERED: MIDAZOLAM HCL 2 MG/2 ML VIAL ONE (19:14)
[2016-11-03] MEDS ORDERED: *morphine SULFATE 8 MG/ML PERIprocedure ONLY ONE (19:21)
--- NOTE | 2016-11-03 19:43 | RADRPT ---
EXAM DATE/TIME: 11/03/2016 19:18 [place] COMPARISON: No previous studies available for comparison. INDICATIONS : Post op left knee. MEDICAL HISTORY : None. SURGICAL HISTORY : None. ENCOUNTER: Initial ACUITY: 1 day PAIN SCORE: Non-responsive. LOCATION: Left knee FINDINGS: AP and lateral views of the left knee were obtained and demonstrate that the patient is status post a rthroplasty. The tibial and femoral components are intact and in normal alignment. Postoperative valdes ges involving the patella. There is soft tissue swelling and gas located anteriorly. CONCLUSION: Expected postoperative changes status post arthroplasty. Mayco Rodas MD on November 03, 2016 at 19:38 Board Certified Radiologist. This report was verified electronically.
[2016-11-03 20:00] VITALS: O2SAT 97
[2016-11-03 20:16] VITALS: BP 141/69; PULSE 122; RESP 18; TEMP 98.1; O2SAT 95
[2016-11-03] MEDS: SODIUM CHLORIDE 0.9% FLUSH 5 ML FLUSH IVF SCH (20:48)
[2016-11-03] MEDS: GABAPENTIN 300 MG CAP PO SCH (20:49)
[2016-11-03] MEDS: PRAVASTATIN SOD 20 MG TAB PO SCH (20:50)
[2016-11-03] MEDS: INSULIN DETEMIR 100 UNITS/ML VIAL SQ SCH (20:51)
[2016-11-03] MEDS: METOPROLOL TARTRATE 25 MG TAB PO SCH (20:56)
[2016-11-03] MEDS ORDERED: BUDESONIDE INH PRN (21:00)
[2016-11-03] MEDS ORDERED: NON-FORMULARY DRUG (Simvastatin 10 MG) PO SCH (21:00)
[2016-11-03] MEDS ORDERED: DO NOT ADM ANY ANTICOAGULANT DRUGS PRN (21:15)
[2016-11-03] MEDS ORDERED: POTASSIUM CHLORIDE 10 MEQ CONTROLLED RELEASE TAB PO PRN (22:00)
[2016-11-03] MEDS: PCA - TOTAL MG MORPHINE DELIVERED PER SHIFT SCH (22:00)
[2016-11-04] VITALS (7 sets, daily range): BP systolic 109–164; BP diastolic 64–95; PULSE 99–143; RESP 17–20; TEMP 97.2–100.9; O2SAT 96–100
[2016-11-04] MEDS: MORPHINE SULFATE 30 MG/30 ML PCA IV SCH ×2 (01:25→14:47)
[2016-11-04] MEDS: LACTATED RINGER'S 1000 ML INJ 1,000 ML IV SCH (03:30)
[2016-11-04] MEDS ORDERED: METOPROLOL TARTRATE 25 MG TAB PO ONE (04:00)
[2016-11-04] MEDS: PCA - TOTAL MG MORPHINE DELIVERED PER SHIFT SCH ×3 (05:58→22:00)
[2016-11-04] MEDS: METOPROLOL TARTRATE 25 MG TAB PO SCH ×2 (06:45→20:47)
[2016-11-04] MEDS: INSULIN ASPART SUPPLEMENTAL SCALE SQ SCH ×4 (07:02→21:02)
--- NOTE | 2016-11-04 08:06 | PD.ORT.PN ---
Subjective Subjective Remarks pt painful today. Objective Vitals Vital Signs Date Time Temp Pulse Resp B/P Pulse Ox O2 Delivery O2 Flow Rate FiO2 11/04/16 05:58 18 11/04/16 04:10 98.4 131 20 143/95 96 11/04/16 01:30 18 11/04/16 01:25 18 11/04/16 01:07 Nasal Cannula 3.00 11/04/16 00:40 97.2 137 19 142/92 99 11/03/16 22:00 18 11/03/16 20:16 98.1 122 18 141/69 95 11/03/16 20:00 97 Nasal Cannula 4.00 11/03/16 20:00 98.4 105 18 166/76 97 Nasal Cannula 4 11/03/16 19:49 107 23 174/81 96 Nasal Cannula 4 11/03/16 19:46 106 21 185/80 96 Nasal Cannula 4 11/03/16 19:45 106 22 188/77 95 Nasal Cannula 4 11/03/16 19:31 106 30 175/77 95 Nasal Cannula 4 11/03/16 19:30 106 28 181/80 94 Nasal Cannula 4 11/03/16 19:15 104 37 170/81 97 Nasal Cannula 4 11/03/16 19:07 105 29 150/80 98 Nasal Cannula 4 11/03/16 19:03 98.4 108 20 172/85 100 Nasal Cannula 4 11/03/16 12:10 99.2 125 18 129/95 98 I/O 11/03/16 11/03/16 11/03/16 11/04/16 11/04/16 11/04/16 07:00 15:00 23:00 07:00 15:00 23:00 Intake Total 1908 ml 603 ml Output Total 300 ml Balance 1608 ml 603 ml Intake Oral 240 ml 240 ml IV Total 368 ml 363 ml Other 1300 ml Output Estimated Blood Loss 300 ml # Voids 1 2 # Bowel Movements 0 0 Imaging Last 24 hours Impressions Knee X-Ray 11/03/16 1442 Signed Impressions: Service Date/Time: Thursday, November 03, 2016 19:18 - CONCLUSION: Expected postoperative changes status post arthroplasty. Mayco Rodas MD Objective Remarks Dressing dry and intact. No calf tenderness. Assessment & Plan Ortho Post Op Day #: 1 Problem List: Assessment and Plan PT OOB, watch pain meds today. Brandi Ma MD Nov 04, 2016 08:06
[2016-11-04 08:16] LABS: HEMATOCRIT 28.5 % (35.0-46.0); REVIEW FLAG FINAL
[2016-11-04] MEDS: SODIUM CHLORIDE 0.9% FLUSH 5 ML FLUSH IVF SCH ×2 (08:35→20:45)
[2016-11-04] MEDS: CALCIUM/VITAMIN D 250 MG/125 U TAB PO SCH ×2 (08:35→20:46)
[2016-11-04] MEDS: CYANOCOBALAMIN 1,000 MCG TAB PO SCH (08:36)
[2016-11-04] MEDS ORDERED: LISINOPRIL 20 MG TAB PO SCH (09:00)
[2016-11-04] MEDS: FLUTICASONE PROPIONATE 50 MCG/ACT 16 GM NASAL SPRAY NASAL SCH ×2 (10:21→21:04)
[2016-11-04] MEDS: DICYCLOMINE HCL 10 MG CAP PO SCH ×3 (10:21→18:12)
[2016-11-04] MEDS: BETHANECHOL CHL 10 MG TAB PO SCH ×3 (10:21→18:12)
[2016-11-04] MEDS ORDERED: CYCLOBENZAPRINE HCL 10 MG TAB PO ONE (12:15)
[2016-11-04] MEDS: ACETAMINOPHEN/HYDROcodone 325 MG/10 MG TAB PO PRN ×2 (12:28→20:46)
--- NOTE | 2016-11-04 13:22 | HHI.PR ---
Subjective Remarks Pt had increased pain/spasm in the left calf after getting up to go to the bathroom this morning. She had increased HR this morning and felt anxious This improved after Metoprolol 25mg around 0400 and 75mg dose at 0645 this morning. She then was given Siloam which seemed to help as well. Pts currently with HR in the low 100's on telemetry, sinus tachycardia. Objective Vitals Vital Signs Date Time Temp Pulse Resp B/P Pulse Ox O2 Delivery O2 Flow Rate FiO2 11/04/16 12:00 98.1 101 17 164/86 100 11/04/16 11:11 3.00 11/04/16 08:20 16 11/04/16 08:00 97.8 99 18 109/64 99 11/04/16 05:58 18 11/04/16 04:10 98.4 131 20 143/95 96 11/04/16 01:30 18 11/04/16 01:25 18 11/04/16 01:07 Nasal Cannula 3.00 11/04/16 00:40 97.2 137 19 142/92 99 11/03/16 22:00 18 11/03/16 20:16 98.1 122 18 141/69 95 11/03/16 20:00 97 Nasal Cannula 4.00 11/03/16 20:00 98.4 105 18 166/76 97 Nasal Cannula 4 11/03/16 19:49 107 23 174/81 96 Nasal Cannula 4 11/03/16 19:46 106 21 185/80 96 Nasal Cannula 4 11/03/16 19:45 106 22 188/77 95 Nasal Cannula 4 11/03/16 19:31 106 30 175/77 95 Nasal Cannula 4 11/03/16 19:30 106 28 181/80 94 Nasal Cannula 4 11/03/16 19:15 104 37 170/81 97 Nasal Cannula 4 11/03/16 19:07 105 29 150/80 98 Nasal Cannula 4 11/03/16 19:03 98.4 108 20 172/85 100 Nasal Cannula 4 11/03/16 11/03/16 11/04/16 15:00 23:00 07:00 Intake Total 1908 ml 603 ml Output Total 300 ml Balance 1608 ml 603 ml Intake Oral 240 ml 240 ml IV Total 368 ml 363 ml Other 1300 ml Output Estimated Blood Loss 300 ml # Voids 1 2 # Bowel Movements 0 0 Result Diagram: 11/04/16 0743 Other Results Laboratory Tests Test 11/03/16 11/04/16 12:21 07:43 Blood Type O POSITIVE Antibody Screen NEGATIVE Crossmatch Leukocyte-Reduced Red Blood Cells Blood Bank Comment Hemoglobin 9.1 GM/DL Hematocrit 28.5 % Imaging Last Impressions Knee X-Ray 11/03/16 1442 Signed Impressions: Service Date/Time: Thursday, November 03, 2016 19:18 - CONCLUSION: Expected postoperative changes status post arthroplasty. Mayco Rodas MD Objective Remarks General: NAD, AAOx3, anxious Chest: CTA Cardiac: Tachy, regular Abd: +BS, soft ND/NT Ext: Left knee bandages are c/d/i, RLE with some swelling. A/P Problem List: (1) Total knee replacement status Status: Acute Plan: - Pt s/p Left TKA on 11/03/16 with with Anil - Post-op pain control per Ortho - Add on Flexeril 10mg Q8H first dose now for spasms in her left calf after ambulation - IS - PT daily - Constipation precautions - DVT prophylaxis with Lovenox (2) Sinus tachycardia Status: Chronic Plan: - Pt with a hx of sinus tachycardia. - She is on Metoprolol 75mg po BID at home. - She reports that she has continued to have issues with tachycardia even prior to this admission with HR in the 120-130's with minimal exertion. - Will monitor HR today and if continues to be elevated may need to add an afternoon dose of Metoprolol for better control. - Telemetry (3) Diabetes Status: Chronic Plan: - Pt is on Levemir 30 units HS, NovoLog SSI, and also reported recently being started on Novolin 10 units TID with meals which was started on 10/30 - She had been having issues with blood sugar control prior to this admission because she had been on steroids for an "asthma attack" earlier this month and was hospitalized at . She is no longer on steroids but is still having issues with BS control. - We increased NovoLog SSI to high dose scale today - Cont. Levemir 30 units HS, if BS is still a problem we may need to add a morning dose of Levemir. - Accu checks. (4) HTN (hypertension), benign Status: Chronic Plan: - Cont. Lisinopril for now, monitor closely (5) Gastroparesis Status: Chronic (6) Asthma Status: Chronic Plan: - Duonebs Q2H PRN ordered - Pt had reportedly been hospitalized earlier this month at for an asthma exacerbation. - She has been on Budesonide PRN and Albuterol MDI PRN most recently (7) GERD (gastroesophageal reflux disease) Status: Chronic Plan: - PPI Assessment and Plan Patient examined. Assessment and plan formulated with Carmen Cabrera PA-C. I agree with the above. s/p left tka. still alot of pain/spasms in the left leg sinus tach. chronic and exacerbated. increase bb dm..uncontrolled bg. cont basal and increase novolog ssi. titrate basal levemir as needed. dvt prophylaxis. Problem Qualifiers (1) Total knee replacement status: Qualified Code: Z96.652 - Total knee replacement status, left (2) Diabetes: Carmen Cabrera Nov 04, 2016 13:22 Jah Benson MD Nov 04, 2016 15:34
[2016-11-04] MEDS: METOPROLOL TARTRATE 50 MG TAB PO SCH (14:47)
[2016-11-04] MEDS: ENOXAPARIN SODIUM 30 MG/0.3 ML SYRINGE SQ SCH (18:12)
[2016-11-04] MEDS: MULTIVITAMINS/MINERALS THERAPEUTIC TAB PO SCH (20:45)
[2016-11-04] MEDS: GABAPENTIN 300 MG CAP PO SCH (20:46)
[2016-11-04] MEDS: DOCUSATE SODIUM 100 MG CAP PO SCH (20:46)
[2016-11-04] MEDS: PRAVASTATIN SOD 20 MG TAB PO SCH (20:47)
[2016-11-04] MEDS ORDERED: metFORMIN HCL 500 MG TAB PO SCH (21:00)
[2016-11-04] MEDS: INSULIN DETEMIR 100 UNITS/ML VIAL SQ SCH (21:02)
[2016-11-05] VITALS (8 sets, daily range): BP systolic 105–134; BP diastolic 64–82; PULSE 98–127; RESP 18–20; TEMP 97.6–99.1; O2SAT 91–100
[2016-11-05] MEDS: ACETAMINOPHEN/HYDROcodone 325 MG/10 MG TAB PO PRN ×4 (03:28→18:18)
[2016-11-05] MEDS: PCA - TOTAL MG MORPHINE DELIVERED PER SHIFT SCH (05:25)
[2016-11-05] MEDS: ENOXAPARIN SODIUM 30 MG/0.3 ML SYRINGE SQ SCH ×2 (05:57→18:18)
[2016-11-05 07:26] LABS: HEMATOCRIT 28.9 % (35.0-46.0); REVIEW FLAG FINAL
[2016-11-05 07:47] LABS: BICARBONATE 28.3 MEQ/L (21.0-32.0)
--- NOTE | 2016-11-05 07:51 | PD.ORT.PN ---
Subjective Subjective Remarks pt less painful today. Objective Vitals Vital Signs Date Time Temp Pulse Resp B/P Pulse Ox O2 Delivery O2 Flow Rate FiO2 11/05/16 07:27 97.6 122 19 109/64 100 11/05/16 05:25 18 11/05/16 04:35 98.7 127 20 120/73 99 11/05/16 04:19 18 11/05/16 00:00 98.9 120 20 105/66 97 11/04/16 22:00 18 11/04/16 20:30 142 11/04/16 19:45 100.9 143 20 143/74 97 11/04/16 16:00 99.5 101 18 139/80 100 11/04/16 14:55 18 11/04/16 14:47 20 11/04/16 14:00 20 11/04/16 12:00 98.1 101 17 164/86 100 11/04/16 11:11 3.00 11/04/16 08:20 16 11/04/16 08:00 97.8 99 18 109/64 99 I/O 11/04/16 11/04/16 11/04/16 11/05/16 11/05/16 11/05/16 07:00 15:00 23:00 07:00 15:00 23:00 Intake Total 603 ml 720 ml 930 ml 645 ml Output Total 900 ml 850 ml Balance 603 ml -180 ml 80 ml 645 ml Intake Oral 240 ml 720 ml 460 ml 240 ml IV Total 363 ml 470 ml 405 ml Output Urine Total 900 ml 850 ml # Voids 2 3 1 # Bowel Movements 0 0 0 Result Diagram: 11/05/16 0548 11/05/16 0548 Imaging Last 24 hours Impressions Knee X-Ray 11/03/16 1442 Signed Impressions: Service Date/Time: Thursday, November 03, 2016 19:18 - CONCLUSION: Expected postoperative changes status post arthroplasty. Mayco Rodas MD Objective Remarks Dressing dry and intact. No calf tenderness. Assessment & Plan Ortho Post Op Day #: 2 Problem List: Assessment and Plan PT OOB, SNF tomorrow. Brandi Ma MD Nov 05, 2016 07:51
[2016-11-05] MEDS: INSULIN ASPART SUPPLEMENTAL SCALE SQ SCH ×4 (07:59→20:40)
[2016-11-05] MEDS: CALCIUM/VITAMIN D 250 MG/125 U TAB PO SCH ×2 (08:32→20:36)
[2016-11-05] MEDS: DOCUSATE SODIUM 100 MG CAP PO SCH ×2 (08:32→20:36)
[2016-11-05] MEDS: MULTIVITAMINS/MINERALS THERAPEUTIC TAB PO SCH ×2 (08:32→20:36)
[2016-11-05] MEDS: BETHANECHOL CHL 10 MG TAB PO SCH ×3 (08:32→18:18)
[2016-11-05] MEDS: CYANOCOBALAMIN 1,000 MCG TAB PO SCH (08:32)
[2016-11-05] MEDS: DICYCLOMINE HCL 10 MG CAP PO SCH ×3 (08:32→18:18)
[2016-11-05] MEDS: FLUTICASONE PROPIONATE 50 MCG/ACT 16 GM NASAL SPRAY NASAL SCH ×2 (08:32→20:44)
[2016-11-05] MEDS: METOPROLOL TARTRATE 25 MG TAB PO SCH ×2 (08:32→20:36)
[2016-11-05] MEDS: SODIUM CHLORIDE 0.9% FLUSH 5 ML FLUSH IVF SCH ×2 (08:36→20:44)
[2016-11-05] MEDS ORDERED: LISINOPRIL 20 MG TAB PO SCH (09:00)
[2016-11-05] MEDS ORDERED: BACITRACIN OINT 0.9 GM PKT TOP PRN (10:15)
--- NOTE | 2016-11-05 11:04 | HHI.PR ---
Subjective Remarks Pt much less anxious today and is less pain HR still elevated into the 120's fairly consistently BP low/normal this morning and Lisinopril was held Objective Vitals Vital Signs Date Time Temp Pulse Resp B/P Pulse Ox O2 Delivery O2 Flow Rate FiO2 11/05/16 07:27 97.6 122 19 109/64 100 11/05/16 07:18 Nasal Cannula 3.00 11/05/16 05:25 18 11/05/16 04:35 98.7 127 20 120/73 99 11/05/16 04:19 18 11/05/16 00:00 98.9 120 20 105/66 97 11/04/16 22:00 18 11/04/16 20:30 142 11/04/16 19:45 100.9 143 20 143/74 97 11/04/16 16:00 99.5 101 18 139/80 100 11/04/16 14:55 18 11/04/16 14:47 20 11/04/16 14:00 20 11/04/16 12:00 98.1 101 17 164/86 100 11/04/16 11:11 3.00 11/04/16 11/04/16 11/05/16 15:00 23:00 07:00 Intake Total 720 ml 930 ml 645 ml Output Total 900 ml 850 ml Balance -180 ml 80 ml 645 ml Intake Oral 720 ml 460 ml 240 ml IV Total 470 ml 405 ml Output Urine Total 900 ml 850 ml # Voids 3 1 # Bowel Movements 0 0 Result Diagram: 11/05/16 0548 11/05/16 0548 Other Results Laboratory Tests Test 11/03/16 11/04/16 11/05/16 12:21 07:43 05:48 Blood Type O POSITIVE Antibody Screen NEGATIVE Crossmatch Leukocyte-Reduced Red Blood Cells Blood Bank Comment Hemoglobin 9.1 GM/DL 9.1 GM/DL Hematocrit 28.5 % 28.9 % Sodium Level 138 MEQ/L Potassium Level 4.0 MEQ/L Chloride Level 102 MEQ/L Carbon Dioxide Level 28.3 MEQ/L Anion Gap 8 MEQ/L Blood Urea Nitrogen 8 MG/DL Creatinine 1.71 MG/DL Estimat Glomerular Filtration 38 ML/MIN Rate Random Glucose 195 MG/DL Calcium Level 8.8 MG/DL Imaging Last Impressions Knee X-Ray 11/03/16 1442 Signed Impressions: Service Date/Time: Thursday, November 03, 2016 19:18 - CONCLUSION: Expected postoperative changes status post arthroplasty. Mayco Rodas MD Objective Remarks General: NAD, AAOx3, anxious Chest: CTA Cardiac: Tachy, regular Abd: +BS, soft ND/NT Ext: Left knee bandages are c/d/i, RLE with some swelling. A/P Problem List: (1) Total knee replacement status Status: Acute Plan: - Pt s/p Left TKA on 11/03/16 with with Anil - Post-op pain control per Ortho - Flexeril 10mg Q8H PRN - IS - PT daily - Constipation precautions - DVT prophylaxis with Lovenox (2) Sinus tachycardia Status: Acute Plan: - Pt with a hx of sinus tachycardia. - She is on Metoprolol 75mg po BID at home. - We added an afternoon dose of Metoprolol 50mg at 1400 on 11/04/16 - She has continued to have issues with tachycardia with HR in the 120-130's with minimal exertion. - Stop the Lisinopril as we will likely need to titrate up on the Metoprolol - Telemetry (3) HTN (hypertension), benign Status: Chronic Plan: - Stop Lisinopril (4) Acute renal insufficiency Status: Acute Plan: - Pts Creatinine up to today, preop labs with Cr 0.69. - LISSETTE stopped - Pt Lasix was held yesterday - Encourage oral intake - Repeat labs in AM (5) Diabetes Status: Acute Plan: - Pt is on Levemir 30 units HS, NovoLog SSI, and also reported recently being started on Novolin 10 units TID with meals which was started on 10/30 - She had been having issues with blood sugar control prior to this admission because she had been on steroids for an "asthma attack" earlier this month and was hospitalized at . She is no longer on steroids but is still having issues with BS control. - We increased NovoLog SSI to high dose scale on 11/04 - Cont. Levemir 30 units HS and we will add Levemir 20 units in AM. - Accu checks. (6) Gastroparesis Status: Chronic Plan: - Cont. home meds (7) Asthma Status: Chronic Plan: - Duonebs Q2H PRN ordered - Pt had reportedly been hospitalized earlier this month at for an asthma exacerbation. - She has been on Budesonide PRN and Albuterol MDI PRN most recently (8) GERD (gastroesophageal reflux disease) Status: Chronic Assessment and Plan Patient examined. Assessment and plan formulated with Carmen Cabrera PA-C. I agree with the above. Problem Qualifiers (1) Total knee replacement status: Qualified Code: Z96.652 - Total knee replacement status, left (2) Diabetes: Carmne Cabrera Nov 05, 2016 11:04 Jah Benson MD Nov 06, 2016 10:21
[2016-11-05] MEDS: METOPROLOL TARTRATE 50 MG TAB PO SCH (13:57)
[2016-11-05] MEDS: CYCLOBENZAPRINE HCL 10 MG TAB PO PRN (15:50)
[2016-11-05] MEDS: PRAVASTATIN SOD 20 MG TAB PO SCH (20:36)
[2016-11-05] MEDS: GABAPENTIN 300 MG CAP PO SCH (20:36)
[2016-11-05] MEDS: INSULIN DETEMIR 100 UNITS/ML VIAL SQ SCH (20:40)
--- NOTE | 2016-11-05 23:01 | MP ---
cc: Brandi ABDI DATE OF SURGERY 11/03/2016 PREOPERATIVE DIAGNOSIS Osteoarthritic degeneration left knee. POSTOPERATIVE DIAGNOSIS Osteoarthritic degeneration left knee. SURGERY PERFORMED Left total knee arthroplasty using consensus components size with the pre made B spoke cutting guides, sizes 4 femur, 2 tibia, 1 patella and 10 insert and two batches of DePuy cement SURGEON Dr. David Abdi MANNEQUIN COLORING ARTIST ELVIS Sinha ANESTHESIA General intubation and block PROCEDURE: After successful induction of anesthesia, the patient is placed on the operating room table in the supine position. B spoke protocol was used. The knee is prepped and draped in the usual manner. No tourniquet was used throughout the case. A longitudinal incision is made extending from 3 inches proximal to the superior pole of the patella, across the patella in longitudinal fashion, and down past the insertion of the tibial tubercle into the proximal tibia. The incision is carried down through subcutaneous tissue along the medial aspect of the patella and retinaculum, down through the capsule to expose the knee joint. The patella and patellar tendon are freed up enough to allow the patella to be inverted and retracted off the lateral side of the knee joint. The knee joint is left exposed. Small osteophytes are removed. All soft tissue is removed to allow proper position of the femoral and tibial cutting jig guide. The first femoral jig is then inserted along the distal end of the femur after first measuring to decide whether this is a small, medium, or large component. The notch is then drilled and the tibial cutting guide inserted into the femoral cutting guide, along with the ankle brace to allow for proper measurement of the tibial cutting surface that needed to be resected. Pins are inserted into the tibial cutting jig and femoral cutting jig to hold them in place. An oscillating saw is then used to resect the surface of the tibia. The surface of the tibia is then completely removed using sharp and blunt dissection. The anterior and posterior cuts of the femur are then made as well using an oscillating saw through the cutting guide. All guides are then removed and the varus/valgus angulation cutting guide applied to the femur for proper measurement of the proper amount of valgus. The anterior cutting guide for the femur is then inserted at the anterior femoral cuts made. Next, the first block trial is inserted into the femur to allow for proper condyle drill holes to be made which are then made followed by removal of the bone between the condyles using an oscillating saw as well as the bone removed at the most posterior surface of the condyle. After this, this guide is removed and the chamfer cuts made using the chamfer cutting guide from both anterior and posterior. Next, the femoral trial is then inserted, the tibial surface reflected anterior to expose the tibial surface and a tibial stem guide is inserted after first measuring for a standard, standard plus, large, or large plus surface to be used. After the stem is impacted the trial tibial surface is applied followed by the trial meniscal components. After full range of motion is found with the appropriate length meniscal components varying the patella is prepared by resecting the posterior aspect of the patella using an oscillating saw, inserting a trial. The trial is then removed and the cruciate cutting guide applied using the bur to cut the cruciate cuts. After cruciate cuts are made all trials are removed. The wound is irrigated copiously with antibiotic solution and Water Pik and the actual components inserted into place using the aforementioned components. After the cement has hardened and the components are found to have full range of motion with no instability. The wound again is irrigated copiously with antibiotic solution, meticulous hemostasis achieved. Two Autovac tubes inserted. It should be noted that this patient was morbidly obese with a BMI of 55.3. This necessitated extra time for exposure and closure in many layers. The deep fascia was approximated with #2 quill, subcutaneous tissue approximated using interrupted running 2-0 and 4-0 Monocryl suture in layers, skin approximated with Steri-Strips. A sterile dressing applied, knee immobilizer could not be applied because of the morbid obesity. Shagufta LEAL was present during the entire procedure to include patient positioning and the procedure. Medical necessity of the nurse practitioner first calender worker was indicated in this case due to the surgical complexity of the case itself. During the surgical case, the surgical corsetier was working the back table while my director surgical ELVIS was directly assisting me. The patient tolerated procedure well. Estimated blood loss 300 mL. Sponge and suture count were correct. The patient left the operating room in satisfactory condition. J. MD NATANAEL Johnson/ /6:25 PM /10:49 PM
[2016-11-06] VITALS (8 sets, daily range): BP systolic 103–140; BP diastolic 56–83; PULSE 63–133; RESP 18–24; TEMP 97.6–99.2; O2SAT 97–99
[2016-11-06] MEDS: ACETAMINOPHEN/HYDROcodone 325 MG/10 MG TAB PO PRN ×5 (00:12→21:49)
[2016-11-06] MEDS: ENOXAPARIN SODIUM 30 MG/0.3 ML SYRINGE SQ SCH ×2 (05:59→17:08)
[2016-11-06] MEDS: CYCLOBENZAPRINE HCL 10 MG TAB PO PRN ×2 (06:04→17:14)
[2016-11-06] MEDS: INSULIN ASPART SUPPLEMENTAL SCALE SQ SCH ×4 (06:06→21:48)
[2016-11-06 06:20] LABS: BASOPHIL % 0.4 % (0.0-2.0); EOSINOPHIL # 0.2 TH/MM3 (0-0.4); EOSINOPHIL % 1.8 % (0.0-4.0); HEMATOCRIT 26.2 % (35.0-46.0); HEMO FLAGS DIFF FINAL; LYMPH % 14.6 % (9.0-44.0); LYMPHOCYTE # 1.3 TH/MM3 (1.0-4.8); MEAN CELL VOLUME 83.3 FL (80.0-100.0); MEAN CORPUSCULAR HEMOGLOBIN 26.4 PG (27.0-34.0); MEAN CORPUSCULAR HGB CONC 31.7 % (32.0-36.0); MONO % 13.9 % (0.0-8.0); NEUT % 69.3 % (16.0-70.0); PLATELET COUNT 271 TH/MM3 (150-450); RED BLOOD COUNT 3.14 MIL/MM3 (4.00-5.30); RED CELL DISTRIBUTION WIDTH 17.9 % (11.6-17.2); WHITE BLOOD COUNT 8.6 TH/MM3 (4.0-11.0)
[2016-11-06 06:39] LABS: BICARBONATE 30.2 MEQ/L (21.0-32.0); POTASSIUM 3.6 MEQ/L (3.5-5.1)
[2016-11-06] MEDS ORDERED: BISACODYL 10 MG SUPP RECTAL PRN (09:45)
[2016-11-06] MEDS: CALCIUM/VITAMIN D 250 MG/125 U TAB PO SCH ×2 (09:54→21:49)
[2016-11-06] MEDS: METOPROLOL TARTRATE 100 MG TAB PO SCH ×2 (09:54→21:46)
[2016-11-06] MEDS: MULTIVITAMINS/MINERALS THERAPEUTIC TAB PO SCH ×2 (09:55→21:00)
[2016-11-06] MEDS: FLUTICASONE PROPIONATE 50 MCG/ACT 16 GM NASAL SPRAY NASAL SCH ×2 (09:55→21:49)
[2016-11-06] MEDS: BETHANECHOL CHL 10 MG TAB PO SCH ×3 (09:55→17:08)
[2016-11-06] MEDS: DICYCLOMINE HCL 10 MG CAP PO SCH ×3 (09:55→17:08)
[2016-11-06] MEDS: CYANOCOBALAMIN 1,000 MCG TAB PO SCH (09:55)
[2016-11-06] MEDS: SODIUM CHLORIDE 0.9% FLUSH 5 ML FLUSH IVF SCH ×2 (09:55→21:00)
[2016-11-06] MEDS: DOCUSATE SODIUM 100 MG CAP PO SCH ×2 (09:55→21:49)
[2016-11-06] MEDS: INSULIN DETEMIR 100 UNITS/ML VIAL SQ SCH ×2 (10:00→21:47)
--- NOTE | 2016-11-06 10:20 | HHI.PR ---
Subjective Remarks in hallway on walker with PT Objective Vitals heart reg lung cta abd s/nt ext no edema Vital Signs Date Time Temp Pulse Resp B/P Pulse Ox O2 Delivery O2 Flow Rate FiO2 11/06/16 09:51 97 21 11/06/16 08:00 98.7 133 24 137/75 98 11/06/16 06:44 Room Air 11/06/16 04:55 99.2 123 18 116/62 97 11/06/16 00:50 99.0 121 18 140/83 97 11/05/16 21:08 95 21 11/05/16 20:25 119 11/05/16 20:00 99.1 120 18 116/64 96 11/05/16 15:40 98.4 113 20 134/74 96 11/05/16 11:44 98.0 98 19 134/82 91 11/05/16 11/05/16 11/06/16 15:00 23:00 07:00 Intake Total 600 ml 240 ml 240 ml Balance 600 ml 240 ml 240 ml Intake Oral 600 ml 240 ml 240 ml # Voids 3 1 1 # Bowel Movements 0 0 0 Result Diagram: 11/06/16 0542 11/06/16 0542 Imaging Last Impressions Knee X-Ray 11/03/16 1442 Signed Impressions: Service Date/Time: Thursday, November 03, 2016 19:18 - CONCLUSION: Expected postoperative changes status post arthroplasty. Mayco Rodas MD A/P Problem List: (1) Total knee replacement status Status: Acute Plan: - Pt s/p Left TKA on 11/03/16 with with Anil - Post-op pain control per Ortho - Flexeril 10mg Q8H PRN - IS - PT daily - Constipation precautions - DVT prophylaxis with Lovenox d/c to snf tomorrow. hold today due to multiple medication adjustments (2) Sinus tachycardia Status: Acute Plan: - Pt with a hx of sinus tachycardia. - She is on Metoprolol 75mg po BID at home. - We added an afternoon dose of Metoprolol 50mg at 1400 on 11/04/16 - She has continued to have issues with tachycardia with HR in the 120-130's with minimal exertion. - Stop the Lisinopril as we will likely need to titrate up on the Metoprolol - increase to 100mg po bid lopressor and keep 2pm 50mg. (3) Acute renal insufficiency Status: Acute Plan: - cr improved - LISSETTE stopped - Pt Lasix was held yesterday - Encourage oral intake (4) Diabetes Status: Acute Plan: - Pt is on Levemir 30 units HS, NovoLog SSI, and also reported recently being started on Novolin 10 units TID with meals which was started on 10/30 - She had been having issues with blood sugar control prior to this admission because she had been on steroids for an "asthma attack" earlier this month and was hospitalized at . She is no longer on steroids but is still having issues with BS control. - We increased NovoLog SSI to high dose scale on 11/04 - Cont. Levemir 30 units HS and we will add Levemir 20 units in AM. - Accu checks. (5) HTN (hypertension), benign Status: Chronic Plan: - Stop Lisinopril (6) GERD (gastroesophageal reflux disease) Status: Chronic (7) Asthma Status: Chronic Plan: - Duonebs Q2H PRN ordered - Pt had reportedly been hospitalized earlier this month at for an asthma exacerbation. - She has been on Budesonide PRN and Albuterol MDI PRN most recently (8) Gastroparesis Status: Chronic Plan: - Cont. home meds Problem Qualifiers (1) Total knee replacement status: Qualified Code: Z96.652 - Total knee replacement status, left (2) Diabetes: Jha Benson MD Nov 06, 2016 10:20
--- NOTE | 2016-11-06 11:49 | PD.ORT.PN ---
Subjective Subjective Remarks pt comfortable at present. Objective Vitals Vital Signs Date Time Temp Pulse Resp B/P Pulse Ox O2 Delivery O2 Flow Rate FiO2 11/06/16 10:03 100 11/06/16 09:51 97 21 11/06/16 08:00 98.7 133 24 137/75 98 11/06/16 06:44 Room Air 11/06/16 04:55 99.2 123 18 116/62 97 11/06/16 00:50 99.0 121 18 140/83 97 11/05/16 21:08 95 21 11/05/16 20:25 119 11/05/16 20:00 99.1 120 18 116/64 96 11/05/16 15:40 98.4 113 20 134/74 96 I/O 11/05/16 11/05/16 11/05/16 11/06/16 11/06/16 11/06/16 07:00 15:00 23:00 07:00 15:00 23:00 Intake Total 645 ml 600 ml 240 ml 240 ml Balance 645 ml 600 ml 240 ml 240 ml Intake Oral 240 ml 600 ml 240 ml 240 ml IV Total 405 ml # Voids 1 3 1 1 # Bowel Movements 0 0 0 0 Result Diagram: 11/06/16 0542 11/06/16 0542 Imaging Last 24 hours Impressions Knee X-Ray 11/03/16 1442 Signed Impressions: Service Date/Time: Thursday, November 03, 2016 19:18 - CONCLUSION: Expected postoperative changes status post arthroplasty. Mayco Rodas MD Objective Remarks Dressing dry and intact. No calf tenderness. Assessment & Plan Ortho Post Op Day #: 3 Problem List: Assessment and Plan PT OOB, SNF tomorrow per medical. Brandi Ma MD Nov 06, 2016 11:49
[2016-11-06] MEDS: METOPROLOL TARTRATE 50 MG TAB PO SCH (14:15)
[2016-11-06] MEDS: GABAPENTIN 300 MG CAP PO SCH (21:46)
[2016-11-06] MEDS: PRAVASTATIN SOD 20 MG TAB PO SCH (21:48)
[2016-11-06] MEDS: SENNOSIDES 8.6 MG TAB PO PRN (21:49)
[2016-11-06] MEDS: MAGNESIUM HYDROXIDE SUSP 30 ML CUP PO PRN (21:49)
[2016-11-07 00:07] VITALS: BP 126/55; PULSE 102; RESP 19; TEMP 98.6; O2SAT 96
[2016-11-07] MEDS: ACETAMINOPHEN/HYDROcodone 325 MG/10 MG TAB PO PRN ×4 (02:53→16:31)
[2016-11-07 04:58] VITALS: BP 137/67; PULSE 107; RESP 18; TEMP 98.7; O2SAT 98
[2016-11-07] MEDS: ENOXAPARIN SODIUM 30 MG/0.3 ML SYRINGE SQ SCH ×2 (06:43→16:30)
[2016-11-07] MEDS: INSULIN ASPART SUPPLEMENTAL SCALE SQ SCH ×3 (06:48→16:00)
[2016-11-07 07:02] VITALS: PULSE 102
[2016-11-07 08:00] VITALS: BP 132/59; PULSE 109; RESP 18; TEMP 97.3; O2SAT 97
[2016-11-07] MEDS: BETHANECHOL CHL 10 MG TAB PO SCH ×3 (08:36→16:30)
[2016-11-07] MEDS: DICYCLOMINE HCL 10 MG CAP PO SCH ×3 (08:36→16:30)
[2016-11-07] MEDS: MULTIVITAMINS/MINERALS THERAPEUTIC TAB PO SCH (08:36)
[2016-11-07] MEDS: FLUTICASONE PROPIONATE 50 MCG/ACT 16 GM NASAL SPRAY NASAL SCH (08:36)
[2016-11-07] MEDS: CALCIUM/VITAMIN D 250 MG/125 U TAB PO SCH (08:36)
[2016-11-07] MEDS: MAGNESIUM HYDROXIDE SUSP 30 ML CUP PO PRN (08:37)
[2016-11-07] MEDS: DOCUSATE SODIUM 100 MG CAP PO SCH (08:37)
[2016-11-07] MEDS: INSULIN DETEMIR 100 UNITS/ML VIAL SQ SCH (08:37)
[2016-11-07] MEDS: CYANOCOBALAMIN 1,000 MCG TAB PO SCH (08:37)
[2016-11-07] MEDS: METOPROLOL TARTRATE 100 MG TAB PO SCH (08:37)
[2016-11-07] MEDS: CYCLOBENZAPRINE HCL 10 MG TAB PO PRN (08:37)
[2016-11-07] MEDS: SENNOSIDES 8.6 MG TAB PO PRN (08:37)
[2016-11-07] MEDS: SODIUM CHLORIDE 0.9% FLUSH 5 ML FLUSH IVF SCH (08:43)
--- NOTE | 2016-11-07 09:33 | HHI.PR ---
Subjective Remarks doing well no compaints Objective Vitals heart reg lung cta abd s/nt ext no pitting Vital Signs Date Time Temp Pulse Resp B/P Pulse Ox O2 Delivery O2 Flow Rate FiO2 11/07/16 08:43 Room Air 11/07/16 08:00 97.3 109 18 132/59 97 11/07/16 07:02 102 11/07/16 04:58 98.7 107 18 137/67 98 11/07/16 00:07 98.6 102 19 126/55 96 11/06/16 20:05 98.4 115 20 117/65 98 11/06/16 19:14 Room Air 11/06/16 16:00 98.9 63 22 103/64 99 11/06/16 12:00 97.6 100 22 109/56 99 11/06/16 10:03 100 11/06/16 09:51 97 21 11/06/16 11/06/16 11/07/16 15:00 23:00 07:00 Intake Total 360 ml 360 ml 480 ml Balance 360 ml 360 ml 480 ml Intake Oral 360 ml 360 ml 480 ml # Voids 1 1 2 # Bowel Movements 0 0 Result Diagram: 11/06/16 0542 11/06/16 0542 Imaging Last Impressions Knee X-Ray 11/03/16 1442 Signed Impressions: Service Date/Time: Thursday, November 03, 2016 19:18 - CONCLUSION: Expected postoperative changes status post arthroplasty. Mayco Rodas MD A/P Problem List: (1) Total knee replacement status Status: Acute Plan: - Pt s/p Left TKA on 11/03/16 with with Anil - Post-op pain control per Ortho - Flexeril 10mg Q8H PRN - IS - PT daily - Constipation precautions - DVT prophylaxis with Lovenox d/c to snf. (2) Sinus tachycardia Status: Acute Plan: - Pt with a hx of sinus tachycardia. - She is on Metoprolol 75mg po BID at home. - We added an afternoon dose of Metoprolol 50mg at 1400 on 11/04/16 - She has continued to have issues with tachycardia with HR in the 120-130's with minimal exertion. - Stop the Lisinopril - increase to 100mg po bid lopressor and keep 2pm 50mg. (3) Acute renal insufficiency Status: Acute Plan: - cr improved - LISSETTE stopped - Pt Lasix was held yesterday - Encourage oral intake (4) Diabetes Status: Acute Plan: - Pt is on Levemir 30 units HS, NovoLog SSI, and also reported recently being started on Novolin 10 units TID with meals which was started on 10/30 - She had been having issues with blood sugar control prior to this admission because she had been on steroids for an "asthma attack" earlier this month and was hospitalized at . She is no longer on steroids but is still having issues with BS control. - We increased NovoLog SSI to high dose scale on 11/04 - Cont. Levemir 30 units HS and we will add Levemir 20 units in AM. This may need further titration at [facility]. (5) HTN (hypertension), benign Status: Chronic Plan: - Stop Lisinopril (6) GERD (gastroesophageal reflux disease) Status: Chronic (7) Asthma Status: Chronic Plan: - Duonebs Q2H PRN ordered - Pt had reportedly been hospitalized earlier this month at for an asthma exacerbation. - She has been on Budesonide PRN and Albuterol MDI PRN most recently (8) Gastroparesis Status: Chronic Plan: - Cont. home meds Problem Qualifiers (1) Total knee replacement status: Qualified Code: Z96.652 - Total knee replacement status, left (2) Diabetes: Jah Benson MD Nov 07, 2016 09:33
[2016-11-07] MEDS ORDERED: LEVEMIR SQ ×2 (09:44→09:52)
[2016-11-07] MEDS ORDERED: METO-338 PO (09:44)
[2016-11-07] MEDS ORDERED: IPRASOL NEB (09:44)
[2016-11-07] MEDS ORDERED: METO-309 PO (09:44)
[2016-11-07] MEDS ORDERED: HYDR-3580 PO (09:44)
[2016-11-07] MEDS ORDERED: CYCL1TAB29 PO (09:44)
[2016-11-07] MEDS ORDERED: REST15CA PO (09:44)
[2016-11-07] MEDS ORDERED: ENOX30P SQ (09:44)
--- NOTE | 2016-11-07 09:46 | PD.ORT.PN ---
Subjective Subjective Remarks pt comfortable at present. Objective Vitals Vital Signs Date Time Temp Pulse Resp B/P Pulse Ox O2 Delivery O2 Flow Rate FiO2 11/07/16 08:43 Room Air 11/07/16 08:00 97.3 109 18 132/59 97 11/07/16 07:02 102 11/07/16 04:58 98.7 107 18 137/67 98 11/07/16 00:07 98.6 102 19 126/55 96 11/06/16 20:05 98.4 115 20 117/65 98 11/06/16 19:14 Room Air 11/06/16 16:00 98.9 63 22 103/64 99 11/06/16 12:00 97.6 100 22 109/56 99 11/06/16 10:03 100 11/06/16 09:51 97 21 I/O 11/06/16 11/06/16 11/06/16 11/07/16 11/07/16 11/07/16 07:00 15:00 23:00 07:00 15:00 23:00 Intake Total 240 ml 360 ml 360 ml 480 ml Balance 240 ml 360 ml 360 ml 480 ml Intake Oral 240 ml 360 ml 360 ml 480 ml # Voids 1 1 1 2 # Bowel Movements 0 0 0 Result Diagram: 11/06/16 0542 11/06/16 0542 Imaging Last 24 hours Impressions Knee X-Ray 11/03/16 1442 Signed Impressions: Service Date/Time: Thursday, November 03, 2016 19:18 - CONCLUSION: Expected postoperative changes status post arthroplasty. Mayco Rodas MD Objective Remarks Dressing dry and intact. No calf tenderness.Sitting up in chair today. Assessment & Plan Ortho Post Op Day #: 4 Problem List: Assessment and Plan PT OOB, SNF today. Brandi Ma MD Nov 07, 2016 09:45
--- NOTE | 2016-11-07 09:52 | HHI.DCPOC ---
Discharge Care Plan Diagnosis: (1) Total knee replacement status (2) Sinus tachycardia (3) Diabetes (4) Gastroparesis (5) HTN (hypertension), benign (6) GERD (gastroesophageal reflux disease) (7) Hyperlipidemia (8) Diabetic peripheral neuropathy associated with type 2 diabetes mellitus Goals to Promote Your Health * To prevent worsening of your condition and complications * To maintain your health at the optimal level Directions to Meet Your Goals Take your medications as prescribed Follow your dietary instruction Follow activity as directed Keep your appointments as scheduled Take your immunizations and boosters as scheduled If your symptoms worsen call your PCP, if no PCP go to Urgent Care Center or Emergency Room Smoking is Dangerous to Your Health. Avoid second hand smoke Call the 24-hour hour crisis hotline for domestic abuse at Jah Benson MD Nov 07, 2016 09:52
[2016-11-07 11:36] VITALS: PULSE 94
[2016-11-07 12:00] VITALS: BP 121/58; PULSE 98; RESP 18; TEMP 97.9; O2SAT 96
[2016-11-07] MEDS ORDERED: LACTULOSE SYRUP 20 GM/30 ML CUP PO ONE (13:00)
--- NOTE | 2016-11-07 13:01 | HHI.DS ---
Discharge Summary Admission Date Nov 03, 2016 at 11:53 Discharge Date: Nov 07, 2016 Admitting Diagnosis Osteoarthritic degeneration left knee Diagnosis: (1) Total knee replacement status Diagnosis: Principal Brief History This is a 51 year old female patient CBC/BMP: 11/06/16 0542 11/06/16 0542 Significant Findings Laboratory Tests Test 11/05/16 11/06/16 05:48 05:42 Hemoglobin 9.1 GM/DL 8.3 GM/DL (11.6-15.3) (11.6-15.3) Hematocrit 28.9 % 26.2 % (35.0-46.0) (35.0-46.0) Creatinine 1.71 MG/DL (0.50-1.00) Estimat Glomerular Filtration 38 ML/MIN (>89) Rate Random Glucose 195 MG/DL 193 MG/DL (74-106) (74-106) Red Blood Count 3.14 MIL/MM3 (4.00-5.30) Mean Corpuscular Hemoglobin 26.4 PG (27.0-34.0) Mean Corpuscular Hemoglobin 31.7 % Concent (32.0-36.0) Red Cell Distribution Width 17.9 % (11.6-17.2) Monocytes (%) (Auto) 13.9 % (0.0-8.0) Monocytes # (Auto) 1.2 TH/MM3 (0-0.9) PE at Discharge Dressing dry and intact. No calf tenderness.Sitting up in chair today. Hospital Course Patient underwent a left total knee arthroplasty on day of admission. She received a course of prophylactic IV antibiotics and within 23 hours started on anticoagulation therapy. She remained afebrile vital signs mostly stable but with a high heart rate for which she had a medical consult with the hospitalist who managed this. She continued to improve began out of bed tolerating food and fluid well. She continued to improve and was discharged to [facility] on the fourth postoperative day in good condition with instructions for continuation of therapy and daily wound care. She was managed well on by mouth pain meds. Pt Condition on Discharge: Good Discharge Disposition: Discharge to SNF Discharge Instructions Diet Instructions: Diabetic Diet Activities You Can Perform: Full Weight Bearing, Shower Only-No Bath Activities to Avoid: Bathing, Driving Brandi Ma MD Nov 07, 2016 13:00
[2016-11-07] MEDS: METOPROLOL TARTRATE 50 MG TAB PO SCH (13:07)
== END 2016-11-07 18:16 | DRG 470 ==
LOC: UNDOADMIN 11-03 05:40 → HSDI 11-03 05:40 → N06A 11-03 20:36
PROVIDERS: ADMIT Surgery; ATTEND Surgery
PROC: 3E0T3BZ Introduction of Anesthetic Agent into Peripheral Nerves and Plexi, Percutaneous Approach (ICD-10-PCS; 2016-11-03)
PROC: 0SRD0J9 Replacement of Left Knee Joint with Synthetic Substitute, Cemented, Open Approach (ICD-10-PCS; principal; 2016-11-03 15:04)
DX: M17.12 Unilateral primary osteoarthritis, left knee (principal); E11.42 Type 2 diabetes mellitus with diabetic polyneuropathy; Z79.84 Long term (current) use of oral hypoglycemic drugs; Z68.43 Body mass index [BMI] 50.0-59.9, adult; E66.01 Morbid (severe) obesity due to excess calories; K31.84 Gastroparesis; I10 Essential (primary) hypertension; G47.30 Sleep apnea, unspecified; K21.9 Gastro-esophageal reflux disease without esophagitis; E78.5 Hyperlipidemia, unspecified; R00.0 Tachycardia, unspecified; N28.9 Disorder of kidney and ureter, unspecified; J45.909 Unspecified asthma, uncomplicated; Z86.718 Personal history of other venous thrombosis and embolism; Z96.651 Presence of right artificial knee joint
CPT/HCPCS: 73560; 76937; 80048; 82948; 83735; 85014; 85018; 85025; 86850; 86900; 86901; 86920; 86922; 94150; 94664; C1776; C9290; J0131; J0690; J1200; J1650; J1815; J2250; J2270; J2405; J3010; J3370; J7050; J7120; L1830

== ENCOUNTER → 2016-10-24 | Outpatient (CLI) | payer MEDICARE ==
[~2016-10-24] MED LIST changes: +ADJUSTABLE COMM1 MIS; +ALBU.5I NEB; +ALBUAER3 INH; +BENZ1CAP34 PO; +COLA100C3 PO; +CPMMACHINE; +CYCL1TAB29 PO; +ENOX30P SQ; +ERGO1CAP10 PO; +ESOM1CAP6 PO; +FLUT1SPR5 EACH NARE; +GLIM2TAB PO; +GLIM4TAB PO; +IPRASOL NEB; +LEVEMIR SQ; +METO-309 PO; +METO-338 PO; +NOVONP2 SQ; +PULM180I INH; +REST15CA PO; +SIMV10TA PO; +WALKER WHEELS/F1 MIS
--- NOTE | 2016-10-28 08:54 | RSPPFT ---
DATE OF PROCEDURE: 10/24/16 COMMENTS: Spirometry shows FVC of 2.2 predicted 3.4, FEV1 of 1.7 predicted 2.6, FEV1/FVC ratio 78% predicted 75%. Lung volumes show a decreased in the TLC at 3.8 predicted 5.4. DLCO is 81% of predicted. IMPRESSION: On the basis of the above, patient has a restrictive lung defect. The flow volume loop is not satisfactory and this interpretation should be regarded with caution and in clinical context.
== END ==
LOC: HRSP 09:31
PROVIDERS: ATTEND Internal Medicine Pulmonary Disease
DX: J45.909 Unspecified asthma, uncomplicated (principal)
CPT/HCPCS: 94060; 94620; 94726; 94729

== ENCOUNTER → 2016-10-27 | Outpatient (CLI) | payer MEDICARE ==
[~2016-10-27] MED LIST changes: -ADJUSTABLE COMM1 MIS; -CPMMACHINE; -ENOX30P SQ; -IPRASOL NEB; -METO-309 PO; -METO-338 PO; -REST15CA PO; -WALKER WHEELS/F1 MIS
[2016-10-27 10:12] LABS: AUTOMATED NEUTROPHIL # 3.3 TH/MM3 (1.8-7.7); BASOPHIL % 0.6 % (0.0-2.0); EOSINOPHIL # 0.1 TH/MM3 (0-0.4); HEMATOCRIT 34.5 % (35.0-46.0); HEMO FLAGS DIFF FINAL; LYMPH % 30.4 % (9.0-44.0); LYMPHOCYTE # 1.8 TH/MM3 (1.0-4.8); MEAN CELL VOLUME 81.8 FL (80.0-100.0); MEAN CORPUSCULAR HEMOGLOBIN 26.2 PG (27.0-34.0); MEAN CORPUSCULAR HGB CONC 32.1 % (32.0-36.0); MONO % 11.8 % (0.0-8.0); NEUT % 55.2 % (16.0-70.0); PLATELET COUNT 301 TH/MM3 (150-450); RED BLOOD COUNT 4.21 MIL/MM3 (4.00-5.30); RED CELL DISTRIBUTION WIDTH 17.6 % (11.6-17.2); WHITE BLOOD COUNT 5.9 TH/MM3 (4.0-11.0)
[2016-10-27 10:21] LABS: APTT (PATIENT) 27.5 SEC (24.3-30.1); INTERNATIONAL NORMALIZED RATIO 0.9 RATIO; PROTHROMBIN TIME - PATIENT 10.2 SEC (9.8-11.6)
[2016-10-27 10:32] LABS: ANION GAP 12 MEQ/L (5-15); AST (GOT) 16 U/L (15-37); BICARBONATE 26.1 MEQ/L (21.0-32.0); BLOOD UREA NITROGEN 8 MG/DL (7-18); CHLORIDE 102 MEQ/L (98-107); GLOMERULAR FILTRATION RATE 108 ML/MIN (>89); GLUCOSE,FASTING 183 MG/DL (74-99); SODIUM (NA) 140 MEQ/L (136-145)
[2016-10-27 10:34] LABS: ALT (GPT) 24 U/L (10-53)
[2016-10-27 10:35] LABS: BACTERIA, URINE RARE /hpf; BLOOD, URINE MOD (NEG); GLUCOSE,URINE NEG (NEG); KETONE, URINE NEG (NEG); MUCUS URINE FEW /lpf (OCC); NITRITE,URINE NEG (NEG); SQUAMOUS EPITHELIAL CELL URINE 3 /hpf (0-5); URINE COLOR YELLOW (YELLW/STRAW)
[2016-10-27 10:36] LABS: ALKALINE PHOSPHATASE 130 U/L (45-117); TOTAL BILIRUBIN ADULT 0.4 MG/DL (0.2-1.0)
[2016-10-27 10:37] LABS: COMMENT (UR) CATH-CULTURE IND; CULTURE IF INDICATED CATH CULTURE IND
== END ==
LOC: CPRE 09:28
PROVIDERS: ATTEND Surgery
DX: Z01.812 Encounter for preprocedural laboratory examination (principal); R82.99 Other abnormal findings in urine
CPT/HCPCS: 36415; 80053; 81001; 85025; 85610; 85730; 87086

== ENCOUNTER 2017-03-13 16:10 | Emergency (ER) | payer MEDICARE ==
[~2017-03-13] VITALS: Ht 167.6 cm; Wt 145.0 kg
[~2017-03-13 16:10] MED LIST changes: +ADJUSTABLE COMM1 MIS; -ALBUAER3 INH; -BENZ1CAP34 PO; -COLA100C3 PO; +CPMMACHINE; +CYCL10TA PO; -CYCL1TAB29 PO; +ENOX30P SQ; -ERGO1CAP10 PO; -ESOM1CAP6 PO; -GLIM2TAB PO; -GLIM4TAB PO; +IPRASOL NEB; +KLOR10TA PO; -LISI40TA PO; +METO-309 PO; +METO-338 PO; -METO25TA3 PO; -NOVONP2 SQ; -POTA-243 PO; +REST15CA PO; +WALKER WHEELS/F1 MIS
[2017-03-13 16:15] VITALS: BP 221/110; PULSE 101; RESP 18; TEMP 98.7; O2SAT 98
--- NOTE | 2017-03-13 16:23 | PD ---
HPI Chief Complaint: Abdominal Pain Time Seen by Provider: 16:21 Travel History International Travel<30 days: No Contact w/Intl Traveler<30days: No Traveled to known affect area: No History of Present Illness HPI The patient is a 52-year-old female who presents to the emergency department for possible appendicitis. The patient notes a 3 month history of right lower quadrant abdominal pain, received a CT of her abdomen and pelvis on an outpatient yesterday by her log skidder, Dr. Perez. The patient was called today stating that she has appendicitis and needs to see his surgeon today. The patient has [facility], was advised that Dr. hunt the general surgeon group reservations coordinator. The patient's normal general surgeon who has performed multiple hernia repairs and her gastric bypass is Dr. Lozano. The patient does note 3 months the right lower quadrant abdominal pain with a few intermittent episodes of nausea and vomiting. The patient does have multiple previous abdominal surgeries for hernia repair with mesh as well as gastric bypass via Louise-en-Y. The patient's last meal was at 1 PM, peanut butter and jelly sandwiches with herminio arsh. The patient states the eating did not exacerbate her pain today. She does state her last episode of nausea and vomiting was yesterday. Does complain of continuing right lower quadrant abdominal pain without any fever, chills, or sweats. She denies any dysuria. PFSH Past Medical History Arthritis: Yes Asthma: Yes Autoimmune Disease: No Anxiety: No Depression: No Heart Rhythm Problems: No Cancer: No Cardiac Catheterization: Yes Cardiovascular Problems: Yes (TACHYCARDIA ) High Cholesterol: Yes Chemotherapy: No Chest Pain: No Congestive Heart Failure: No COPD: No Cerebrovascular Accident: Yes (2007) Diabetes: Yes Diminished Hearing: No Endocrine: Yes Gastrointestinal Disorders: Yes (GASTROPARESIS) GERD: Yes Glaucoma: Yes Genitourinary: No Hepatitis: No Hiatal Hernia: Yes Hypertension: Yes Immune Disorder: No Kidney Stones: No Musculoskeletal: Yes (CONGENITAL ARTHRITIS, 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--HAS HAD NO SURGERY) Neurologic: Yes (2007) Psychiatric: Yes (CLAUSTROPHOBIC) Reproductive: Yes (HX HYSTERECTOMY ) Respiratory: No Migraines: No Myocardial Infarction: No Radiation Therapy: No Renal Failure: No Seizures: No Sleep Apnea: Yes (NO CPAP) Thyroid Disease: No Ulcer: No Menopausal: Yes : 1 Para: 1 Miscarriage: 0 : 0 Past Surgical History Abdominal Surgery: Yes (GASTRIC BYPASS, LOUISE N Y, BOWEL RESECTION, REPAIR UMBILICAL HERNIA) AICD: No Appendectomy: No Body Medical Devices: MESH UPPER AND LOWER ABDOMEN Cardiac Surgery: No Section: Yes Cholecystectomy: Yes Ear Surgery: No Endocrine Surgery: No Eye Surgery: No Genitourinary Surgery: No Gynecologic Surgery: Yes (HYSTERECTOMY) Hysterectomy: Yes (still have ovaries) Joint Replacement: Yes (05/14/15 RTK) Neurologic Surgery: No Oral Surgery: No Pacemaker: No Thoracic Surgery: No Tonsillectomy: Yes Social History Alcohol Use: No Tobacco Use: No Substance Use: No Allergies-Medications (Allergen,Severity, Reaction): Coded Allergies: No Known Allergies (Verified , 10/27/16) NKA Reported Meds & Prescriptions Reported Meds & Active Scripts Active Levemir Inj (Insulin Detemir) 1,000 unit/ 10 ML Vial 30 Units SQ DIRECTED levemir 20 units morning levemir 30 units bedtime Restoril (Temazepam) 15 Mg Cap 15 Mg PO HS PRN Duoneb (Ipratropium-Albuterol Neb) 0.5-2.5 Mg/3 Ml Neb 1 Ampule NEB Q2HR NEB PRN 10 Days Flexeril (Cyclobenzaprine HCl) 10 Mg Tab 10 Mg PO Q8H PRN Hydrocodone-Acetaminophen 7.5-325 mg Tab 1 Tab PO Q4HR PRN Reported Novolin R Inj (Insulin Human Regular) 1,000 Unit/10 Ml Vial 40 Units SQ BID Novolin N Inj (Insulin Human NPH) 1,000 Unit/10 Ml Vial 15 Units SQ ACHS Lopressor (Metoprolol Tartrate) 50 Mg Tab 75 Mg PO BID Simvastatin 10 Mg Tab 10 Mg PO HS Flonase Nasal [place] (Fluticasone Nasal [place]) 50 Mcg/Act [place] 50 Mcg EACH NARE BID Pulmicort Flexhaler (Budesonide Powder Inh) 180 Mcg/Act Inhp 180 Mcg INH Q12HR PRN Albuterol Neb (Albuterol Sulfate) 2.5 Mg/0.5 Ml Neb 2.5 Mg NEB TID NEB PRN Note: The Albuterol Sulfate Inhalation Solution is concentrated and must be diluted. Read complete instructions carefully before using. Citracal + D3 Maximum (Calcium Citrate-Vitamin D) 315-250 Mg-Unit Tab 1 Tab PO BID Bethanechol 10 Mg Tab 10 Mg PO TID Dicyclomine (Dicyclomine HCl) 10 Mg Cap 10 Mg PO TID Lasix (Furosemide) 20 Mg Tab 20 Mg PO DAILY PRN Gabapentin 300 Mg Cap 300 Mg PO HS Metformin (Metformin HCl) 500 Mg Tab 1,000 Mg PO HS With meals Vitamin B-12 (Cyanocobalamin) 1,000 Mcg Tab 1,000 Mcg PO DAILY Klor-Con 10 (Potassium Chloride) 10 Meq Tab 10 Meq PO BID PRN Review of Systems Except as stated in HPI: all other systems reviewed are Neg General / Constitutional: No: Fever Cardiovascular: No: Chest Pain or Discomfort Respiratory: No: Shortness of Breath Gastrointestinal: Positive: Nausea, Vomiting, Abdominal Pain Genitourinary: No: Dysuria Physical Exam Narrative GENERAL: Awake, alert, pleasant 52-year-old female who appears her stated age and is in no acute respiratory distress. SKIN: Focused skin assessment warm/dry. HEAD: Atraumatic. Normocephalic. EYES: No injection or drainage. ENT: No nasal bleeding or discharge. Mucous membranes pink and moist. NECK: Trachea midline. No JVD. CARDIOVASCULAR: Regular rate and rhythm. No murmur appreciated. RESPIRATORY: No accessory muscle use. Clear to auscultation. Breath sounds equal bilaterally. GASTROINTESTINAL: Abdomen soft, large pannus with multiple well-healed surgical scars. The patient does have right lower quadrant abdominal pain but no guarding or rigidity. MUSCULOSKELETAL: No obvious deformities. No clubbing. No cyanosis. No edema. NEUROLOGICAL: Awake and alert. No obvious cranial nerve deficits. Motor grossly within normal limits. Normal speech. PSYCHIATRIC: Appropriate mood and affect; insight and judgment normal. Data Data Last Documented VS Vital Signs Date Time Temp Pulse Resp B/P (MAP) Pulse Ox O2 Delivery O2 Flow Rate FiO2 03/13/17 16:39 86 18 98 03/13/17 16:15 98.7 Orders Orders Complete Blood Count With Diff (03/13/17 16:37) Comprehensive Metabolic Panel (03/13/17 16:37) Lactic Acid (03/13/17 16:37) Urinalysis - C+S If Indicated (03/13/17 16:37) Iv Access Insert/Monitor (03/13/17 16:37) Ecg Monitoring (03/13/17 16:37) Oximetry (03/13/17 16:37) Morphine Inj (Morphine Inj) (03/13/17 16:45) Ondansetron Inj (Zofran Inj) (03/13/17 16:45) Sodium Chlor 0.9% 1000 Ml Inj (Ns 1000 M (03/13/17 16:37) Sodium Chloride 0.9% Flush (Ns Flush) (03/13/17 16:45) NPO (03/13/17 16:37) Labs Laboratory Tests Test 03/13/17 17:02 White Blood Count 7.0 TH/MM3 Red Blood Count 3.95 MIL/MM3 Hemoglobin 9.2 GM/DL Hematocrit 28.9 % Mean Corpuscular Volume 73.1 FL Mean Corpuscular Hemoglobin 23.3 PG Mean Corpuscular Hemoglobin Concent 31.8 % Red Cell Distribution Width 20.0 % Platelet Count 371 TH/MM3 Mean Platelet Volume 7.5 FL Neutrophils (%) (Auto) 60.7 % Lymphocytes (%) (Auto) 26.2 % Monocytes (%) (Auto) 10.7 % Eosinophils (%) (Auto) 1.9 % Basophils (%) (Auto) 0.5 % Neutrophils # (Auto) 4.2 TH/MM3 Lymphocytes # (Auto) 1.8 TH/MM3 Monocytes # (Auto) 0.7 TH/MM3 Eosinophils # (Auto) 0.1 TH/MM3 Basophils # (Auto) 0.0 TH/MM3 CBC Comment DIFF FINAL Differential Comment Blood Urea Nitrogen 8 MG/DL Creatinine 0.72 MG/DL Random Glucose 79 MG/DL Total Protein 7.7 GM/DL Albumin 3.3 GM/DL Calcium Level 8.8 MG/DL Alkaline Phosphatase 211 U/L Aspartate Amino Transf (AST/SGOT) 62 U/L Alanine Aminotransferase (ALT/SGPT) 50 U/L Total Bilirubin 0.1 MG/DL Sodium Level 142 MEQ/L Potassium Level 4.3 MEQ/L Chloride Level 104 MEQ/L Carbon Dioxide Level 30.9 MEQ/L Anion Gap 7 MEQ/L Estimat Glomerular Filtration Rate 102 ML/MIN Lactic Acid Level 0.9 mmol/L MDM Medical Decision Making Medical Screen Exam Complete: Yes Emergency Medical Condition: Yes Medical Record Reviewed: Yes Interpretation(s) CT of the abdomen and pelvis performed on March 11, 2017 reveals enlarging cystic lesion of the cecal tip 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 Status post cholecystectomy and hysterectomy. No evidence of ileus or obstruction. No evidence of ligament lymphadenopathy or ascites. Large panniculus. Advanced facet arthropathy lumbar spine. Laboratory Tests Test 03/13/17 17:02 White Blood Count 7.0 TH/MM3 Red Blood Count 3.95 MIL/MM3 Hemoglobin 9.2 GM/DL Hematocrit 28.9 % Mean Corpuscular Volume 73.1 FL Mean Corpuscular Hemoglobin 23.3 PG Mean Corpuscular Hemoglobin Concent 31.8 % Red Cell Distribution Width 20.0 % Platelet Count 371 TH/MM3 Mean Platelet Volume 7.5 FL Neutrophils (%) (Auto) 60.7 % Lymphocytes (%) (Auto) 26.2 % Monocytes (%) (Auto) 10.7 % Eosinophils (%) (Auto) 1.9 % Basophils (%) (Auto) 0.5 % Neutrophils # (Auto) 4.2 TH/MM3 Lymphocytes # (Auto) 1.8 TH/MM3 Monocytes # (Auto) 0.7 TH/MM3 Eosinophils # (Auto) 0.1 TH/MM3 Basophils # (Auto) 0.0 TH/MM3 CBC Comment DIFF FINAL Differential Comment Blood Urea Nitrogen 8 MG/DL Creatinine 0.72 MG/DL Random Glucose 79 MG/DL Total Protein 7.7 GM/DL Albumin 3.3 GM/DL Calcium Level 8.8 MG/DL Alkaline Phosphatase 211 U/L Aspartate Amino Transf (AST/SGOT) 62 U/L Alanine Aminotransferase (ALT/SGPT) 50 U/L Total Bilirubin 0.1 MG/DL Sodium Level 142 MEQ/L Potassium Level 4.3 MEQ/L Chloride Level 104 MEQ/L Carbon Dioxide Level 30.9 MEQ/L Anion Gap 7 MEQ/L Estimat Glomerular Filtration Rate 102 ML/MIN Lactic Acid Level 0.9 mmol/L Differential Diagnosis Differential diagnosis includes appendicitis, chronic abdominal pain, pyelonephritis, perforated abscess, abscess, partial small bowel obstruction. Narrative Course IV was established, labs are drawn and sent, and the patient was placed on cardiac telemetry monitoring and continuous pulse oximetry monitoring. The patient was administer morphine, Zofran, IV fluids, and kept nothing by mouth. 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 Therefore, the on-call [facility] surgeon was paged at 4:35 PM. I discussed the patient with Dr. Hunt, he agrees with white count and lactic acid, will call back after labs are resulted. White count is normal , lactic acid is normal, patient will need surgery but not immediate surgery for the cystic lesion in the right lower quadrant. The patient has an appointment with her general surgeon, Dr. Lozano, on Thursday morning. She declines pain medications, states she has [place] 7.5 at home. I will write for Zofran as needed for nausea/vomiting. Diet as tolerated. Follow-up with her surgeon as scheduled on Thursday. Diagnosis Primary Impression: Abdominal pain Qualified Codes: R10.31 - Right lower quadrant pain Patient Instructions: General Instructions Additional Instructions: Please provide the patient copy of her lab results at discharge. Follow-up with your surgeon on Thursday as scheduled. Zofran as needed. Diet as tolerated. Return if symptoms worsen or progress. Med/Other Pt SpecificInfo: Prescription(s) given Scripts Ondansetron Odt (Zofran Odt) 4 Mg Tab 4 MG SL Q6HR Y for Nausea/Vomiting, #10 TAB 0 Refills Prov: Jamarcus De La Rosa MD 03/13/17 Disposition: 01 DISCHARGE HOME Condition: Stable Jamarcus De La Rosa MD Mar 13, 2017 16:23
[2017-03-13] MEDS ORDERED: SODIUM CHLOR 0.9% 1000 ML INJ 1,000 ML IV SCH (16:37)
[2017-03-13 16:39] VITALS: PULSE 86; RESP 18; O2SAT 98
[2017-03-13] MEDS ORDERED: SODIUM CHLORIDE 0.9% FLUSH 10 ML FLUSH IV FLUSH PRN (16:45)
[2017-03-13] MEDS ORDERED: ONDANSETRON HCL 4 MG/2 ML VIAL IVP ONE (16:45)
[2017-03-13] MEDS ORDERED: MORPHINE SULFATE 4 MG/ML INJ IV PUSH ONE (16:45)
[2017-03-13] MEDS ORDERED: METO-309 PO (16:49)
[2017-03-13] MEDS ORDERED: NOVONP2 SQ (16:49)
[2017-03-13] MEDS ORDERED: NOVORP2 SQ (16:49)
[2017-03-13 17:15] LABS: AUTOMATED NEUTROPHIL # 4.2 TH/MM3 (1.8-7.7); BASOPHIL % 0.5 % (0.0-2.0); EOSINOPHIL # 0.1 TH/MM3 (0-0.4); EOSINOPHIL % 1.9 % (0.0-4.0); HEMATOCRIT 28.9 % (35.0-46.0); HEMO FLAGS DIFF FINAL; LYMPH % 26.2 % (9.0-44.0); LYMPHOCYTE # 1.8 TH/MM3 (1.0-4.8); MEAN CELL VOLUME 73.1 FL (80.0-100.0); MEAN CORPUSCULAR HEMOGLOBIN 23.3 PG (27.0-34.0); MEAN CORPUSCULAR HGB CONC 31.8 % (32.0-36.0); MONO % 10.7 % (0.0-8.0); NEUT % 60.7 % (16.0-70.0); PLATELET COUNT 371 TH/MM3 (150-450); RED BLOOD COUNT 3.95 MIL/MM3 (4.00-5.30)
[2017-03-13 17:39] LABS: ALT (GPT) 50 U/L (10-53); ANION GAP 7 MEQ/L (5-15); AST (GOT) 62 U/L (15-37); BICARBONATE 30.9 MEQ/L (21.0-32.0); BLOOD UREA NITROGEN 8 MG/DL (7-18); CHLORIDE 104 MEQ/L (98-107); GLOMERULAR FILTRATION RATE 102 ML/MIN (>89); POTASSIUM 4.3 MEQ/L (3.5-5.1); SODIUM (NA) 142 MEQ/L (136-145)
[2017-03-13 17:41] LABS: ALKALINE PHOSPHATASE 211 U/L (45-117); TOTAL BILIRUBIN ADULT 0.1 MG/DL (0.2-1.0)
[2017-03-13] MEDS ORDERED: ZOFR4TAB3 SL (18:22)
== END 2017-03-13 19:18 | disposition home or self-care (01) ==
LOC: NEPE 16:10
DX: R10.31 Right lower quadrant pain (principal); R11.2 Nausea with vomiting, unspecified; M19.90 Unspecified osteoarthritis, unspecified site; J45.909 Unspecified asthma, uncomplicated; E78.00 Pure hypercholesterolemia, unspecified; E11.43 Type 2 diabetes mellitus with diabetic autonomic (poly)neuropathy; K31.84 Gastroparesis; I10 Essential (primary) hypertension; Z86.73 Personal history of transient ischemic attack (TIA), and cerebral infarction without residual deficits
CPT/HCPCS: 80053; 83605; 85025; 96361; 96374; 96375; 99284; J2270; J2405; J7030

== ENCOUNTER 2017-04-08 08:06 | Inpatient (IN) | payer MEDICARE ==
[~2017-04-08] VITALS: Ht 167.6 cm; Wt 160.3 kg
[~2017-04-08 08:06] MED LIST changes: -ADJUSTABLE COMM1 MIS; -CPMMACHINE; -ENOX30P SQ; -LEVEMIR SQ; +LISI-515 PO; -METO-338 PO; +NOVONP2 SQ; +NOVORP2 SQ; -WALKER WHEELS/F1 MIS; +ZOFR4TAB3 SL
[2017-04-08] MEDS ORDERED: CHLORHEXIDINE GLUCONATE 2 % 1 PACK (2 CLOTHS) TOPICAL PRN (09:15)
[2017-04-08] MEDS ORDERED: POVIDONE IODINE 5% (ANTISEPSIS KIT) 4 APPLICATIONS EACH NARE PRN (09:15)
[2017-04-08] MEDS ORDERED: SODIUM CHLORID 0.9% 500 ML IV PRN (09:15)
[2017-04-08] MEDS ORDERED: LACTATED RINGER'S 1000 ML IV PRN (09:15)
[2017-04-08] MEDS ORDERED: METOPROLOL TARTRATE 25 MG TAB PO PRN (09:15)
[2017-04-08] MEDS ORDERED: ACETAMINOPHEN 1000 MG/100 ML 100 ML IV SCH (09:15)
[2017-04-08] MEDS ORDERED: ONDANSETRON HCL 4 MG/2 ML VIAL IV PUSH SCH (09:15)
[2017-04-08] MEDS ORDERED: BUPIVACAINE/EPINEPHRINE 0.25% 50 ML VIAL ONE (11:40)
[2017-04-08] MEDS: metroNIDAZOLE 500 MG INJ 100 ML IV SCH (12:40)
[2017-04-08] MEDS: ceFAZolin 2 GM PREMIX 50 ML IV SCH (13:06)
[2017-04-08] MEDS ORDERED: SUGAMMADEX SODIUM 200 MG/2 ML VIAL IV PUSH ONE ×2 (13:16)
[2017-04-08] MEDS ORDERED: LEVOFLOXACIN 500 MG PREMIX INJ 100 ML IV ONE (15:36)
[2017-04-08] MEDS ORDERED: ceFAZolin INJ 1,000 MG VIAL ONE (16:49)
[2017-04-08] MEDS ORDERED: DO NOT ADM ANY ANTICOAGULANT DRUGS PRN (17:50)
[2017-04-08] MEDS: SODIUM CHLOR 0.9% 1000 ML INJ 1,000 ML IV SCH (18:00)
[2017-04-08] MEDS ORDERED: *morphine SULFATE 8 MG/ML PERIprocedure ONLY ONE ×2 (18:12→18:41)
[2017-04-08] MEDS ORDERED: *ONDANSETRON 4 MG VIAL PERIprocedural Use ONLY ONE (18:42)
[2017-04-08] MEDS ORDERED: METOCLOPRAMIDE HCL 10 MG/2 ML VIAL IVS PRN (18:45)
[2017-04-08] MEDS ORDERED: NALOXONE HCL 0.4 MG/ML AMP IV PUSH PRN (18:45)
[2017-04-08] MEDS ORDERED: DEXTROSE 50% IN WATER 50 ML VIAL(D50) IV PUSH PRN (18:45)
[2017-04-08] MEDS ORDERED: oxyCODONE/ACETAMINOPHEN 5 MG/325 MG TAB PO PRN (18:45)
[2017-04-08] MEDS ORDERED: Post-op Orders (for Pharmacy) MISC XX ONE (18:45)
[2017-04-08] MEDS ORDERED: MAGNESIUM HYDROXIDE SUSP 30 ML CUP PO PRN (18:45)
[2017-04-08] MEDS ORDERED: GLUCAGON 1 MG/ML VIAL OTHER PRN (18:45)
[2017-04-08] MEDS: MORPHINE SULFATE 30 MG/30 ML PCA IV SCH (19:52)
[2017-04-08 20:44] VITALS: BP 175/88; PULSE 109; RESP 18; TEMP 97.9; O2SAT 97
[2017-04-08] MEDS ORDERED: NON-FORMULARY DRUG (Simvastatin 10 MG) PO SCH (21:00)
[2017-04-08] MEDS: PCA - TOTAL MG MORPHINE DELIVERED PER SHIFT SCH (22:00)
[2017-04-08] MEDS: SODIUM CHLORIDE 0.9% FLUSH 10 ML FLUSH IV FLUSH SCH (22:41)
[2017-04-08] MEDS: INSULIN NovoLIN REGULAR SUPPLEMENTAL SCALE SQ SCH (23:14)
[2017-04-08] MEDS: METOPROLOL TARTRATE 25 MG TAB PO SCH (23:14)
[2017-04-08] MEDS: GABAPENTIN 300 MG CAP PO SCH (23:14)
[2017-04-08] MEDS: PRAVASTATIN SOD 20 MG TAB PO SCH (23:14)
[2017-04-08] MEDS: PIPERACIL-TAZO 3.375 GM PREMIX 50 ML IV SCH (23:15)
[2017-04-09] VITALS (9 sets, daily range): BP systolic 122–178; BP diastolic 58–94; PULSE 94–124; RESP 17–22; TEMP 96.6–100.2; O2SAT 95–98
[2017-04-09] MEDS: oxyCODONE/ACETAMINOPHEN 5 MG/325 MG TAB PO PRN (02:27)
[2017-04-09] MEDS ORDERED: METOPROLOL TARTRATE 25 MG TAB PO ONE (02:30)
[2017-04-09] MEDS: SODIUM CHLOR 0.9% 1000 ML INJ 1,000 ML IV SCH ×2 (05:20→18:22)
[2017-04-09] MEDS: PIPERACIL-TAZO 3.375 GM PREMIX 50 ML IV SCH ×3 (05:26→21:40)
[2017-04-09] MEDS: PCA - TOTAL MG MORPHINE DELIVERED PER SHIFT SCH ×3 (06:00→22:00)
[2017-04-09] MEDS: ceFAZolin 2 GM PREMIX 50 ML IV SCH (06:09)
[2017-04-09] MEDS: metroNIDAZOLE 500 MG INJ 100 ML IV SCH (06:09)
--- NOTE | 2017-04-09 06:36 | MP ---
cc: [place]AJ[place]ITO DATE OF 1965 DATE OF OPERATION 04/08/2017 PREOPERATIVE DIAGNOSIS Appendiceal cyst. POSTOPERATIVE DIAGNOSIS Cecal cyst. PROCEDURE Ileocectomy. SURGEON Jorgito Lozaon MD ANESTHESIA General endotracheal anesthesia. ESTIMATED BLOOD LOSS Scant. FINDINGS Cystic mass extending involving the appendix as well as the cecum to the ileocecal valve. Due to the extent of the mass, it was decided to remove the entire cecum. SPECIMEN Cecum. COMPLICATIONS None. OPERATION The patient was brought to the operating room, placed on the operating table in supine position. Bilateral sequential inflation devices were placed on the lower extremities, general anesthesia instituted, Guan catheter placed, antibiotics initiated. The abdomen was prepped and draped sterilely. A point in the left upper quadrant was anesthetized with 0.25% Marcaine with epinephrine. A skin incision was made, a 5-mm port placed under direct vision and pneumoperitoneum created. Under direct vision a 5-mm left lower quadrant port, an additional 5-mm right upper quadrant port and 12-mm epigastric port was placed. Prior to placement of all ports the skin and peritoneum were anesthetized with 0.25% Marcaine with epinephrine. The patient was placed in Trendelenburg position right side up. The appendix and cecum were identified. It was decided to perform an ileocecostomy. The ileocolic vessel was identified, dissection was carried out from the medial to lateral direction. Once the vessel was isolated, the harmonic scalpel was used to divided it. The mesentery was . The cecum was adherent to the right flank and this was taken down using the harmonic scalpel. The small bowel was also from the peritoneum using the harmonic scalpel. The mesentery associated with the small bowel was with the harmonic scalpel. The bowel was then divided with an endovascular stapler blue load. The distal margin was also divided with the endovascular stapler blue load; two firings were taken. The bowel was then laid in the pelvis. Ileocolic anastomosis was created in an isoperistaltic manner, stapled, anastomosis created. The defect was closed with 2-0 Stratafix suture in a running manner; two-layer closure was performed. The mesenteric defect was closed with 2-0 silk suture in a running manner. The pelvis was irrigated with copious amounts of saline. A 10 flat LUCÍA was placed into the pelvis. The 12-mm epigastric incision was extended. A wound protector placed. The mass was removed from the peritoneal cavity. The fascia was then approximated with #2 Vicryl in a [id number] manner, the wound irrigated with saline and skin edges approximated with grazyna. The abdominal wall was cleaned and sterile dressing placed. The patient was awakened and taken to the recovery room. All instrument and sponge counts were reported as correct at the end of the procedure. MD FRANCI Mohamud/SSB /6:50 PM /6:11 AM
[2017-04-09 08:32] LABS: AUTOMATED NEUTROPHIL # 10.2 TH/MM3 (1.8-7.7); BASOPHIL % 0.2 % (0.0-2.0); HEMATOCRIT 29.3 % (35.0-46.0); HEMO FLAGS DIFF FINAL; LYMPH % 7.7 % (9.0-44.0); MEAN CELL VOLUME 73.5 FL (80.0-100.0); MEAN CORPUSCULAR HEMOGLOBIN 22.2 PG (27.0-34.0); MEAN CORPUSCULAR HGB CONC 30.2 % (32.0-36.0); MONO % 9.1 % (0.0-8.0); PLATELET COUNT 340 TH/MM3 (150-450); RED BLOOD COUNT 3.98 MIL/MM3 (4.00-5.30); RED CELL DISTRIBUTION WIDTH 21.1 % (11.6-17.2); WHITE BLOOD COUNT 12.3 TH/MM3 (4.0-11.0)
[2017-04-09] MEDS: INSULIN NovoLIN REGULAR SUPPLEMENTAL SCALE SQ SCH ×4 (08:38→20:51)
[2017-04-09] MEDS: METOPROLOL TARTRATE 25 MG TAB PO SCH ×2 (08:39→20:44)
[2017-04-09] MEDS: LISINOPRIL 20 MG TAB PO SCH (08:39)
[2017-04-09] MEDS: SODIUM CHLORIDE 0.9% FLUSH 10 ML FLUSH IV FLUSH SCH ×2 (08:48→20:44)
[2017-04-09 09:04] LABS: BICARBONATE 27.7 MEQ/L (21.0-32.0); POTASSIUM 4.4 MEQ/L (3.5-5.1)
[2017-04-09] MEDS ORDERED: INFLUENZA VIRUS VACCINE (QUADRIVALENT) 0.5 ML SYR IM ONE (10:00)
[2017-04-09] MEDS: MORPHINE SULFATE 30 MG/30 ML PCA IV SCH (13:23)
[2017-04-09] MEDS: RESP: ALBUTEROL 2.5 MG/IPRATROPIUM 0.5 MG NEB (SCH) NEB ×2 (16:00→20:51)
--- NOTE | 2017-04-09 16:57 | HHI.PR ---
Subjective Subjective Notes Sitting up in chair C/O of a lot incisional pain Not passing flatus Objective Vitals/I&O Vital Signs Date Time Temp Pulse Resp B/P (MAP) Pulse Ox O2 Delivery O2 Flow Rate FiO2 04/09/17 13:29 16 04/09/17 12:00 97.9 94 122/66 (84) 95 04/08/17 20:00 Nasal Cannula 2.00 Labs Laboratory Tests Test 04/09/17 07:40 White Blood Count 12.3 Red Blood Count 3.98 Hemoglobin 8.8 Hematocrit 29.3 Mean Corpuscular Volume 73.5 Mean Corpuscular Hemoglobin 22.2 Mean Corpuscular Hemoglobin Concent 30.2 Red Cell Distribution Width 21.1 Platelet Count 340 Mean Platelet Volume 7.4 Neutrophils (%) (Auto) 83.0 Lymphocytes (%) (Auto) 7.7 Monocytes (%) (Auto) 9.1 Eosinophils (%) (Auto) 0.0 Basophils (%) (Auto) 0.2 Neutrophils # (Auto) 10.2 Lymphocytes # (Auto) 1.0 Monocytes # (Auto) 1.1 Eosinophils # (Auto) 0.0 Basophils # (Auto) 0.0 CBC Comment DIFF FINAL Differential Comment Blood Urea Nitrogen 14 Creatinine 1.56 Random Glucose 240 Calcium Level 8.6 Sodium Level 137 Potassium Level 4.4 Chloride Level 101 Carbon Dioxide Level 27.7 Anion Gap 8 Estimat Glomerular Filtration Rate 42 Cardiovascular: Regular Lungs: Wheezes Abdomen: Post-op tenderness Extremities: Perfused Wound Wound : Wound Location: Abdomen Appearance: Clean & Dry (LUCÍA drain with serosanguineous drainage) A/P Assessment and Plan 52yo F POD# ileocectomy -Remove murillo in AM -Remain on clears until able to pass flatus -Duonebs Q6H for wheezing -Continue with frequent ambulation Discharge Planning D/C home depending on hospital course Braden Juarez Apr 09, 2017 16:57
[2017-04-09] MEDS: ENOXAPARIN SODIUM 40 MG/0.4 ML SYRINGE SQ SCH (18:21)
[2017-04-09] MEDS: PRAVASTATIN SOD 20 MG TAB PO SCH (20:44)
[2017-04-09] MEDS: GABAPENTIN 300 MG CAP PO SCH (20:44)
[2017-04-10] VITALS (8 sets, daily range): BP systolic 127–175; BP diastolic 61–77; PULSE 107–134; RESP 16–20; TEMP 99–100.7; O2SAT 92–97
[2017-04-10] MEDS: SODIUM CHLOR 0.9% 1000 ML INJ 1,000 ML IV SCH ×2 (03:00→14:23)
[2017-04-10] MEDS: RESP: ALBUTEROL 2.5 MG/IPRATROPIUM 0.5 MG NEB (SCH) NEB ×4 (03:04→21:28)
[2017-04-10] MEDS: PIPERACIL-TAZO 3.375 GM PREMIX 50 ML IV SCH ×3 (05:07→21:29)
[2017-04-10] MEDS: PCA - TOTAL MG MORPHINE DELIVERED PER SHIFT SCH ×3 (05:54→22:00)
[2017-04-10 06:29] LABS: AUTOMATED NEUTROPHIL # 8.8 TH/MM3 (1.8-7.7); BASOPHIL # 0.1 TH/MM3 (0-0.2); BASOPHIL % 0.6 % (0.0-2.0); EOSINOPHIL # 0.3 TH/MM3 (0-0.4); EOSINOPHIL % 2.6 % (0.0-4.0); HEMATOCRIT 27.1 % (35.0-46.0); HEMO FLAGS DIFF FINAL; LYMPH % 8.4 % (9.0-44.0); LYMPHOCYTE # 0.9 TH/MM3 (1.0-4.8); MEAN CELL VOLUME 74.1 FL (80.0-100.0); MEAN CORPUSCULAR HEMOGLOBIN 22.4 PG (27.0-34.0); MEAN CORPUSCULAR HGB CONC 30.2 % (32.0-36.0); MONO % 9.3 % (0.0-8.0); NEUT % 79.1 % (16.0-70.0); PLATELET COUNT 298 TH/MM3 (150-450); RED BLOOD COUNT 3.66 MIL/MM3 (4.00-5.30); RED CELL DISTRIBUTION WIDTH 20.6 % (11.6-17.2); WHITE BLOOD COUNT 11.1 TH/MM3 (4.0-11.0)
[2017-04-10 06:44] LABS: APTT (PATIENT) 29.3 SEC (24.3-30.1); INTERNATIONAL NORMALIZED RATIO 1.1 RATIO; PROTHROMBIN TIME - PATIENT 11.3 SEC (9.8-11.6)
[2017-04-10 06:45] LABS: TOTAL BILIRUBIN ADULT 0.6 MG/DL (0.2-1.0)
[2017-04-10] MEDS: INSULIN NovoLIN REGULAR SUPPLEMENTAL SCALE SQ SCH ×4 (08:06→21:47)
[2017-04-10] MEDS: LISINOPRIL 20 MG TAB PO SCH (08:07)
[2017-04-10] MEDS: METOPROLOL TARTRATE 25 MG TAB PO SCH ×2 (08:07→21:31)
[2017-04-10] MEDS: SODIUM CHLORIDE 0.9% FLUSH 10 ML FLUSH IV FLUSH SCH ×2 (09:00→21:27)
[2017-04-10] MEDS: ONDANSETRON HCL 4 MG/2 ML VIAL IV PUSH PRN ×2 (09:24→21:44)
--- NOTE | 2017-04-10 12:32 | HHI.PR ---
Subjective Subjective Notes C/O of abdominal pain and cramping Not passing flatus Objective Vitals/I&O Vital Signs Date Time Temp Pulse Resp B/P (MAP) Pulse Ox O2 Delivery O2 Flow Rate FiO2 04/10/17 12:00 99.0 107 16 144/67 (92) 93 04/10/17 10:56 Nasal Cannula 2.00 Labs Laboratory Tests Test 04/10/17 06:20 White Blood Count 11.1 Red Blood Count 3.66 Hemoglobin 8.2 Hematocrit 27.1 Mean Corpuscular Volume 74.1 Mean Corpuscular Hemoglobin 22.4 Mean Corpuscular Hemoglobin Concent 30.2 Red Cell Distribution Width 20.6 Platelet Count 298 Mean Platelet Volume 7.3 Neutrophils (%) (Auto) 79.1 Lymphocytes (%) (Auto) 8.4 Monocytes (%) (Auto) 9.3 Eosinophils (%) (Auto) 2.6 Basophils (%) (Auto) 0.6 Neutrophils # (Auto) 8.8 Lymphocytes # (Auto) 0.9 Monocytes # (Auto) 1.0 Eosinophils # (Auto) 0.3 Basophils # (Auto) 0.1 CBC Comment DIFF FINAL Differential Comment Prothrombin Time 11.3 Prothromb Time International Ratio 1.1 Activated Partial Thromboplast Time 29.3 Creatinine 0.69 Estimat Glomerular Filtration Rate 107 Lactic Acid Level 0.7 Total Bilirubin 0.6 Date/Time Source Procedure Growth Status 04/10/17 06:32 Blood Peripheral Aerobic Blood Culture Pending Received 04/10/17 06:32 Blood Peripheral Anaerobic Blood Culture Pending Received Cardiovascular: Regular Lungs: Clear Abdomen: Post-op tenderness (distented with intermittent bowel sounds) Extremities: Perfused Wound Wound : Wound Location: Abdomen Appearance: Clean & Dry (LUCÍA with small amount of bloody drainage) A/P Assessment and Plan 52yo F POD#2 ileocectomy -Change Reglan to scheduled -Remain on clears until able to pass flatus -Continue with frequent ambulation -Will keep IV pain control Discharge Planning D/C home depending on hospital course Braden Juarez Apr 10, 2017 12:32
[2017-04-10] MEDS: METOCLOPRAMIDE HCL 10 MG/2 ML VIAL IVS SCH ×2 (14:16→18:08)
[2017-04-10] MEDS: fentaNYL 50 MCG/HR PATCH T-DERMAL SCH (17:21)
[2017-04-10] MEDS: ENOXAPARIN SODIUM 40 MG/0.4 ML SYRINGE SQ SCH (17:21)
[2017-04-10] MEDS: PRAVASTATIN SOD 20 MG TAB PO SCH (21:31)
[2017-04-10] MEDS: GABAPENTIN 300 MG CAP PO SCH (21:31)
[2017-04-11] VITALS (8 sets, daily range): BP systolic 110–140; BP diastolic 53–79; PULSE 79–122; RESP 17–21; TEMP 96.5–101.1; O2SAT 93–98
[2017-04-11] MEDS: METOCLOPRAMIDE HCL 10 MG/2 ML VIAL IVS SCH ×4 (00:25→18:39)
[2017-04-11] MEDS: RESP: ALBUTEROL 2.5 MG/IPRATROPIUM 0.5 MG NEB (SCH) NEB ×4 (03:02→21:29)
[2017-04-11] MEDS: PCA - TOTAL MG MORPHINE DELIVERED PER SHIFT SCH (06:00)
[2017-04-11] MEDS: SODIUM CHLOR 0.9% 1000 ML INJ 1,000 ML IV SCH ×3 (06:26→17:45)
[2017-04-11] MEDS: PIPERACIL-TAZO 3.375 GM PREMIX 50 ML IV SCH ×3 (06:27→21:52)
[2017-04-11] MEDS: METOPROLOL TARTRATE 25 MG TAB PO SCH ×2 (07:41→21:53)
[2017-04-11] MEDS: SODIUM CHLORIDE 0.9% FLUSH 10 ML FLUSH IV FLUSH SCH ×2 (07:42→21:54)
[2017-04-11] MEDS: LISINOPRIL 20 MG TAB PO SCH (07:42)
[2017-04-11] MEDS: MORPHINE SULFATE 30 MG/30 ML PCA IV SCH (07:46)
[2017-04-11] MEDS: INSULIN NovoLIN REGULAR SUPPLEMENTAL SCALE SQ SCH ×4 (08:00→22:06)
--- NOTE | 2017-04-11 11:06 | HHI.PR ---
Subjective Subjective Notes The patient states she feels much better than yesterday. She has passed gas and had a small bowel movement. She's been walking in the halls with minimal difficulty. Her pain is under control. Objective Vitals/I&O Vital Signs Date Time Temp Pulse Resp B/P (MAP) Pulse Ox O2 Delivery O2 Flow Rate FiO2 04/11/17 07:46 16 04/11/17 07:29 99.0 120 140/68 (92) 93 04/11/17 03:05 Nasal Cannula 2.00 Labs Date/Time Source Procedure Growth Status 04/10/17 06:32 Blood Peripheral Aerobic Blood Culture Pending Received 04/10/17 06:32 Blood Peripheral Anaerobic Blood Culture Pending Received Cardiovascular: Regular Lungs: Clear Abdomen: Non-distended, Non-tender, Post-op tenderness, BS normal Extremities: No edema A/P Assessment and Plan Impression status post laparoscopic partial right colectomy for appendiceal mass. She is stable and improving with no complications. Plan: Diet will be advanced the IV will be saline locked and she will increase her activity. Chi Maza MD Apr 11, 2017 11:06
[2017-04-11] MEDS: oxyCODONE/ACETAMINOPHEN 5 MG/325 MG TAB PO PRN ×3 (13:20→22:05)
[2017-04-11] MEDS: ENOXAPARIN SODIUM 40 MG/0.4 ML SYRINGE SQ SCH (16:32)
[2017-04-11] MEDS: GABAPENTIN 300 MG CAP PO SCH (21:53)
[2017-04-11] MEDS: PRAVASTATIN SOD 20 MG TAB PO SCH (21:53)
[2017-04-12] VITALS (8 sets, daily range): BP systolic 133–185; BP diastolic 58–88; PULSE 96–133; RESP 17–22; TEMP 97.4–98.3; O2SAT 92–99
[2017-04-12] MEDS: METOCLOPRAMIDE HCL 10 MG/2 ML VIAL IVS SCH ×4 (00:40→17:54)
[2017-04-12] MEDS: SODIUM CHLOR 0.9% 1000 ML INJ 1,000 ML IV SCH ×2 (03:45→20:58)
[2017-04-12] MEDS: RESP: ALBUTEROL 2.5 MG/IPRATROPIUM 0.5 MG NEB (SCH) NEB ×4 (03:56→19:30)
[2017-04-12] MEDS: PIPERACIL-TAZO 3.375 GM PREMIX 50 ML IV SCH ×3 (04:45→20:57)
[2017-04-12] MEDS: oxyCODONE/ACETAMINOPHEN 5 MG/325 MG TAB PO PRN ×3 (04:49→20:56)
[2017-04-12] MEDS: METOPROLOL TARTRATE 25 MG TAB PO SCH ×2 (10:21→20:56)
[2017-04-12] MEDS: SODIUM CHLORIDE 0.9% FLUSH 10 ML FLUSH IV FLUSH SCH ×2 (10:22→20:57)
[2017-04-12] MEDS: LISINOPRIL 20 MG TAB PO SCH (10:23)
[2017-04-12] MEDS: INSULIN NovoLIN REGULAR SUPPLEMENTAL SCALE SQ SCH ×4 (10:38→20:58)
--- NOTE | 2017-04-12 13:11 | HHI.PR ---
Subjective Subjective Notes She feels much better today. She's been out of bed walking in the [place] several times and so far is tolerating a regular diet. She has been passing increasing amounts of flatus but has not had a bowel movement yet. She has no significant complaints of pain. Objective Vitals/I&O Vital Signs Date Time Temp Pulse Resp B/P (MAP) Pulse Ox O2 Delivery O2 Flow Rate FiO2 04/12/17 08:00 97.7 131 20 153/88 (109) 95 04/11/17 21:31 Nasal Cannula 2.00 Labs Date/Time Source Procedure Growth Status 04/10/17 06:32 Blood Peripheral Aerobic Blood Culture - Preliminary NO GROWTH IN 2 DAYS Resulted 04/10/17 06:32 Blood Peripheral Anaerobic Blood Culture - Preliminary NO GROWTH IN 2 DAYS Resulted Cardiovascular: Regular Lungs: Clear Abdomen: Non-distended, Post-op tenderness Extremities: No edema A/P Assessment and Plan Impression status post laparoscopic partial right colectomy for appendiceal mass. She continues to improve and has tolerated a regular diet. Plan: I have encouraged her to increase her ambulation. She should be revealed to be discharged tomorrow. Chi Maza MD Apr 12, 2017 13:11
[2017-04-12] MEDS: ENOXAPARIN SODIUM 40 MG/0.4 ML SYRINGE SQ SCH (17:51)
[2017-04-12 19:26] LABS: CREATINE KINASE 314 U/L (26-192)
[2017-04-12 19:38] LABS: CKMB 0.7 NG/ML (0.5-3.6)
[2017-04-12] MEDS: GABAPENTIN 300 MG CAP PO SCH (20:56)
[2017-04-12] MEDS: PRAVASTATIN SOD 20 MG TAB PO SCH (20:56)
[2017-04-13] VITALS (9 sets, daily range): BP systolic 131–176; BP diastolic 67–95; PULSE 101–123; RESP 17–20; TEMP 95.9–98; O2SAT 93–97
[2017-04-13] MEDS: METOCLOPRAMIDE HCL 10 MG/2 ML VIAL IVS SCH ×4 (00:53→17:09)
[2017-04-13] MEDS: RESP: ALBUTEROL 2.5 MG/IPRATROPIUM 0.5 MG NEB (SCH) NEB ×2 (03:40→09:18)
[2017-04-13] MEDS: PIPERACIL-TAZO 3.375 GM PREMIX 50 ML IV SCH ×3 (06:16→21:56)
[2017-04-13] MEDS: oxyCODONE/ACETAMINOPHEN 5 MG/325 MG TAB PO PRN ×3 (06:20→19:52)
[2017-04-13] MEDS: LISINOPRIL 20 MG TAB PO SCH (08:42)
[2017-04-13] MEDS: METOPROLOL TARTRATE 25 MG TAB PO SCH (08:43)
[2017-04-13] MEDS: SODIUM CHLORIDE 0.9% FLUSH 10 ML FLUSH IV FLUSH SCH ×2 (08:44→19:51)
[2017-04-13] MEDS: SODIUM CHLOR 0.9% 1000 ML INJ 1,000 ML IV SCH ×2 (08:45→19:45)
[2017-04-13] MEDS: INSULIN NovoLIN REGULAR SUPPLEMENTAL SCALE SQ SCH ×4 (08:56→21:00)
[2017-04-13] MEDS ORDERED: RESP: ALBUTEROL 2.5 MG/IPRATROPIUM 0.5 MG NEB (PRN) NEB (10:45)
--- NOTE | 2017-04-13 13:29 | HHI.PR ---
Subjective Subjective Notes Sitting up in chair, pain is better controlled. Passing flatus, tolerating regular diet Objective Vitals/I&O Vital Signs Date Time Temp Pulse Resp B/P (MAP) Pulse Ox O2 Delivery O2 Flow Rate FiO2 04/13/17 12:00 97.3 102 20 174/92 (119) 94 04/13/17 08:47 Bi-Pap 04/12/17 19:30 2.00 Labs Laboratory Tests Test 04/12/17 18:47 Total Creatine Kinase 314 Creatine Kinase MB 0.7 Creatine Kinase MB % 0.2 Troponin I LESS THAN 0.02 Date/Time Source Procedure Growth Status 04/10/17 06:32 Blood Peripheral Aerobic Blood Culture - Preliminary NO GROWTH IN 3 DAYS Resulted 04/10/17 06:32 Blood Peripheral Anaerobic Blood Culture - Preliminary NO GROWTH IN 3 DAYS Resulted Abdomen: Post-op tenderness Extremities: Perfused Wound Wound : Wound Location: Abdomen Appearance: Clean & Dry (LUCÍA drain with scant amount of drainage ) A/P Assessment and Plan 52yo F POD# 5 ileocectomy -Increase metoprolol to 100mg BID -Continue with frequent ambulation -Will most likely pull LUCÍA tomorrow Discharge Planning D/C home tomorrow Braden Juarez Apr 13, 2017 13:29
[2017-04-13] MEDS: ENOXAPARIN SODIUM 40 MG/0.4 ML SYRINGE SQ SCH (17:08)
[2017-04-13] MEDS: fentaNYL 50 MCG/HR PATCH T-DERMAL SCH (17:10)
[2017-04-13] MEDS ORDERED: REMOVE OLD PATCH T-DERMAL SCH (18:00)
--- NOTE | 2017-04-13 19:24 | EKG ---
Date Performed: 04/12/2017 Time Performed: 18:22:26 PTAGE: 52 years EKG: SINUS TACHYCARDIA LOW QRS VOLTAGE IN PRECORDIAL LEADS POSSIBLE ANTERIOR MYOCARDIAL INFARCTI ON , OF INDETERMINATE AGE Since previous tracing, no significant change noted ABNORMAL ECG PREVIOUS TRACING : 09/22/2016 20.25 DOCTOR: Sarabjit Jerome Interpretating Date/Time 04/13/2017 19:22:34
[2017-04-13] MEDS: PRAVASTATIN SOD 20 MG TAB PO SCH (19:50)
[2017-04-13] MEDS: GABAPENTIN 300 MG CAP PO SCH (19:51)
[2017-04-13] MEDS: METOPROLOL TARTRATE 100 MG TAB PO SCH (19:51)
[2017-04-14] VITALS: BP 160/81; PULSE 102; RESP 17; TEMP 96.3; O2SAT 96
[2017-04-14 00:19] VITALS: PULSE 108
[2017-04-14] MEDS: METOCLOPRAMIDE HCL 10 MG/2 ML VIAL IVS SCH ×3 (01:21→12:24)
[2017-04-14] MEDS: SODIUM CHLORIDE 0.9% FLUSH 10 ML FLUSH IV FLUSH PRN ×2 (01:23→06:22)
[2017-04-14] MEDS: oxyCODONE/ACETAMINOPHEN 5 MG/325 MG TAB PO PRN ×3 (01:23→12:24)
[2017-04-14 04:00] VITALS: BP 149/75; PULSE 102; RESP 18; TEMP 95.9; O2SAT 92
[2017-04-14] MEDS: SODIUM CHLOR 0.9% 1000 ML INJ 1,000 ML IV SCH (05:45)
[2017-04-14] MEDS: PIPERACIL-TAZO 3.375 GM PREMIX 50 ML IV SCH (06:22)
[2017-04-14 08:00] VITALS: BP 150/68; PULSE 106; RESP 18; TEMP 96.8; O2SAT 93
[2017-04-14] MEDS: METOPROLOL TARTRATE 100 MG TAB PO SCH (08:44)
[2017-04-14] MEDS: INSULIN NovoLIN REGULAR SUPPLEMENTAL SCALE SQ SCH ×2 (08:44→12:22)
[2017-04-14] MEDS: LISINOPRIL 20 MG TAB PO SCH (08:46)
[2017-04-14] MEDS: SODIUM CHLORIDE 0.9% FLUSH 10 ML FLUSH IV FLUSH SCH (08:46)
--- NOTE | 2017-04-14 13:47 | HHI.DS ---
Discharge Summary Admission Date Apr 08, 2017 at 19:55 Discharge Date: Apr 14, 2017 Admitting Diagnosis Appendicitis Procedures laparoscopic ileocecectomy Brief History Morbidly obese female with diabetes and hypertension presented for appendectomy CBC/BMP: 04/10/17 0620 04/10/17 0620 Significant Findings Laboratory Tests Test 04/12/17 18:47 Total Creatine Kinase 314 U/L Creatine Kinase MB 0.7 NG/ML Creatine Kinase MB % 0.2 % Troponin I LESS THAN 0.02 NG/ML Laboratory Tests Test 04/09/17 07:40 04/10/17 06:20 04/12/17 18:47 Blood Urea Nitrogen 14 MG/DL Creatinine 1.56 MG/DL 0.69 MG/DL Random Glucose 240 MG/DL Calcium Level 8.6 MG/DL Sodium Level 137 MEQ/L Potassium Level 4.4 MEQ/L Chloride Level 101 MEQ/L Carbon Dioxide Level 27.7 MEQ/L Anion Gap 8 MEQ/L White Blood Count 11.1 TH/MM3 Red Blood Count 3.66 MIL/MM3 Hemoglobin 8.2 GM/DL Hematocrit 27.1 % Mean Corpuscular Volume 74.1 FL Mean Corpuscular Hemoglobin 22.4 PG Mean Corpuscular Hemoglobin Concent 30.2 % Red Cell Distribution Width 20.6 % Platelet Count 298 TH/MM3 Mean Platelet Volume 7.3 FL Neutrophils (%) (Auto) 79.1 % Lymphocytes (%) (Auto) 8.4 % Monocytes (%) (Auto) 9.3 % Eosinophils (%) (Auto) 2.6 % Basophils (%) (Auto) 0.6 % Neutrophils # (Auto) 8.8 TH/MM3 Lymphocytes # (Auto) 0.9 TH/MM3 Monocytes # (Auto) 1.0 TH/MM3 Eosinophils # (Auto) 0.3 TH/MM3 Basophils # (Auto) 0.1 TH/MM3 CBC Comment DIFF FINAL Differential Comment Prothrombin Time 11.3 SEC Prothromb Time International Ratio 1.1 RATIO Activated Partial Thromboplast Time 29.3 SEC Estimat Glomerular Filtration Rate 107 ML/MIN Lactic Acid Level 0.7 mmol/L Total Bilirubin 0.6 MG/DL Total Creatine Kinase 314 U/L Creatine Kinase MB 0.7 NG/ML Creatine Kinase MB % 0.2 % Troponin I LESS THAN 0.02 NG/ML PE at Discharge General: In no acute distress Lungs: CTA Cardiac: RRR Abdomen: Mild post op tenderness. Midline grazyna clean and dry. LUCÍA with scant serous drainage. Will D/C prior to discharge Hospital Course The procedure was performed without complication and she was sent to the bariatric unit. She was quite painful for some time and required an extra day of IV narcotics. Bowel function returned and patient was able to tolerate regular diet. She was discharged home. Pt Condition on Discharge: Stable Discharge Disposition: Discharge Home Discharge Instructions DIET: Follow Instructions for: Soft Diet Additional Diet Instructions: No potatoes, grains, or breads. No concentrated sweets Activities you can perform: Shower Only-No Bath Activities to Avoid: Strenuous Activity Follow up Referrals: Surgical - 1 Week @ [facility] Surgery with Alexei Lozano MD Continued Medications: Albuterol Neb (Albuterol Neb) 2.5 Mg/0.5 Ml Neb 2.5 MG NEB TID NEB PRN for SHORTNESS OF BREATH, #90 NEBULE 0 Refills Note: The Albuterol Sulfate Inhalation Solution is concentrated and must be diluted. Read complete instructions carefully before using. Calcium Citrate-Vitamin D (Citracal + D3 Maximum) 315-250 Mg-Unit Tab 1 TAB PO BID for Calcium Supplement, #100 TAB 0 Refills Cyanocobalamin (Vitamin B-12) 1,000 Mcg Tab 1000 MCG PO DAILY for Nutritional Supplement, #1 BOTTLE 0 Refills Cyclobenzaprine (Flexeril) 10 Mg Tab 10 MG PO Q8H PRN for spasms, #15 TAB Dicyclomine (Dicyclomine) 10 Mg Cap 10 MG PO TID for Bowel Management, CAP 0 Refills Furosemide (Lasix) 20 Mg Tab 20 MG PO DAILY PRN for swelling, #30 TAB 0 Refills Gabapentin (Gabapentin) 300 Mg Cap 300 MG PO HS, #30 CAP 0 Refills Hydrocodone-Acetaminophen (Hydrocodone-Acetaminophen) 7.5-325 mg Tab 1 TAB PO Q4HR PRN for PAIN, #30 TAB 0 Refills Insulin Human NPH Inj (Novolin N Inj) 1,000 Unit/10 Ml Vial 30 UNITS SQ ACHS for Blood Sugar Management, #10 ML 0 Refills Insulin Human Regular Inj (Novolin R Inj) 1,000 Unit/10 Ml Vial 10 UNITS SQ BID for Blood Sugar Management, ML 0 Refills Ipratropium-Albuterol Neb (Duoneb) 0.5-2.5 Mg/3 Ml Neb 1 AMPULE NEB Q2HR NEB PRN for SHORTNESS OF BREATH for 10 Days, ML Lisinopril (Lisinopril) 20 Mg Tab 20 MG PO DAILY, #30 TAB 0 Refills Metformin (Metformin) 500 Mg Tab 1000 MG PO HS for Blood Sugar Management, #60 TAB 0 Refills With meals Metoprolol Tartrate (Lopressor) 50 Mg Tab 75 MG PO BID, #90 TAB 0 Refills Potassium Chloride ER (Klor-Con 10) 10 Meq Tab 10 MEQ PO BID PRN for with lasix, #60 TAB 0 Refills Simvastatin (Simvastatin) 10 Mg Tab 10 MG PO HS for Cholesterol Management, #30 TAB 0 Refills Braden Juarez Apr 14, 2017 13:47
== END 2017-04-14 14:14 | disposition home or self-care (01) | DRG 331 ==
LOC: HSDC 08:06 → N07B 19:55
PROVIDERS: ADMIT Surgery; ATTEND Surgery
PROC: 0DBH4ZZ Excision of Cecum, Percutaneous Endoscopic Approach (ICD-10-PCS; 2017-04-08)
PROC: 0D1B0ZH Bypass Ileum to Cecum, Open Approach (ICD-10-PCS; principal; 2017-04-08 12:31)
DX: K38.8 Other specified diseases of appendix (principal); E66.01 Morbid (severe) obesity due to excess calories; E11.9 Type 2 diabetes mellitus without complications; R06.2 Wheezing; I10 Essential (primary) hypertension; Z23 Encounter for immunization
CPT/HCPCS: 76937; 80048; 82247; 82550; 82552; 82565; 82948; 83605; 84484; 85025; 85610; 85730; 87040; 88307; 88309; 90471; 90686; 93005; 94150; 94640; 94664; G0008; J0690; J1650; J1956; J2270; J2405; J2543; J2765; J7030; J7120; Q2038

== ENCOUNTER 2017-04-26 22:35 | Inpatient (IN) | payer MEDICARE ==
[~2017-04-26] VITALS: Ht 167.6 cm; Wt 127.5 kg
[~2017-04-26 22:35] MED LIST changes: -BETH10TA2 PO; -FLUT1SPR5 EACH NARE; -PULM180I INH; -REST15CA PO; -ZOFR4TAB3 SL
[2017-04-26 22:50] VITALS: PULSE 97; RESP 20; TEMP 98.5; O2SAT 98
--- NOTE | 2017-04-26 22:51 | PD ---
HPI Chief Complaint: Abdominal Pain Time Seen by Provider: 22:45 Travel History International Travel<30 days: No Contact w/Intl Traveler<30days: No History of Present Illness HPI The patient is a 52 year old female who presents to the [facility] emergency department with a history of worsening abdominal pain since Thursday of this past week. The patient's recent history is complicated by being admitted to the hospital from April 08 through April 14. On March 19 the patient underwent ileocecostomy by Dr. Lozano. The patient had a prolonged admission to the hospital related to abdominal pain postop. The patient reports that she's had abdominal pain for an extended period of time related to multiple problems with abdominal hernias status post repair, gastroparesis, and a Louise-en-Y gastric bypass done previously. She reports that prior to having her last surgery she was having sharp pin-like pains in the right side of her abdomen. She reports that she continues to have that pain as well as intermittent twisting pains in the right side of her abdomen. She reports that she saw him in follow-up on Thursday. He thought that she may be experiencing some constipation postop, therefore he recommended Benefiber twice daily. She reports that she has been taking this on a regular basis and moving her bowels regularly. She reports that she last moved her bowels earlier this morning. She denies having any blood in her stool or black or tarry stools. She denies having any diarrhea. She reports that today the pain became so severe that she began to have nausea. She reports that the only thing that she brings up is white to clear phlegm. She reports that she has had an occasional cough and a clear rhinorrhea. She denies having any fevers or chills. She denies having any chest pain, chest pressure, or shortness of breath. Otherwise on review of systems, she denies having any neck pain, urinary symptoms, or neurologic symptoms. [facility] Past Medical History Narrative Medical The patient's past medical history is significant for diabetes mellitus, gastroparesis, chronic abdominal pain, hypertension, hyperlipidemia, obesity, history of a TIA in 2007. Arthritis: Yes Asthma: Yes Autoimmune Disease: No Blood Disorders: Yes Anxiety: No Depression: No Heart Rhythm Problems: No Cancer: No Cardiac Catheterization: Yes Cardiovascular Problems: Yes (TACHYCARDIA ) High Cholesterol: Yes Chemotherapy: No Chest Pain: No Congestive Heart Failure: No COPD: No Cerebrovascular Accident: Yes (2007) Diabetes: Yes Diminished Hearing: No Endocrine: Yes Gastrointestinal Disorders: Yes (GASTROPARESIS) GERD: Yes Glaucoma: Yes Genitourinary: No Hepatitis: No Hiatal Hernia: Yes Hypertension: Yes Immune Disorder: No Implanted Vascular Access Dvce: Yes Kidney Stones: No Musculoskeletal: Yes (CONGENITAL ARTHRITIS, 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 Abdominal Surgery: Yes (GASTRIC BYPASS, LOUISE N Y, BOWEL RESECTION, REPAIR UMBILICAL HERNIA) AICD: No Appendectomy: No Body Medical Devices: MESH UPPER AND LOWER ABDOMEN Cardiac Surgery: No Section: Yes Cholecystectomy: Yes Ear Surgery: No Endocrine Surgery: No Eye Surgery: No Genitourinary Surgery: No Gynecologic Surgery: Yes (HYSTERECTOMY) Hysterectomy: Yes (still have ovaries) Joint Replacement: Yes (BILATERAL KNEE REPLACEMENT) Neurologic Surgery: No Oral Surgery: No Pacemaker: No Thoracic Surgery: No Tonsillectomy: Yes Other Surgery: Yes (05/14/15 [facility]) Social History Alcohol Use: No Tobacco Use: No Substance Use: No Allergies-Medications (Allergen,Severity, Reaction): Coded Allergies: No Known Allergies (Verified , 10/27/16) NKA Reported Meds & Prescriptions Reported Meds & Active Scripts Active Duoneb (Ipratropium-Albuterol Neb) 0.5-2.5 Mg/3 Ml Neb 1 Ampule NEB Q2HR NEB PRN 10 Days Flexeril (Cyclobenzaprine HCl) 10 Mg Tab 10 Mg PO Q8H PRN Hydrocodone-Acetaminophen 7.5-325 mg Tab 1 Tab PO Q4HR PRN Reported Lisinopril 20 Mg Tab 20 Mg PO DAILY Novolin N Inj (Insulin Human NPH) 1,000 Unit/10 Ml Vial 30 Units SQ ACHS Lopressor (Metoprolol Tartrate) 50 Mg Tab 75 Mg PO BID Simvastatin 10 Mg Tab 10 Mg PO HS Albuterol Neb (Albuterol Sulfate) 2.5 Mg/0.5 Ml Neb 2.5 Mg NEB TID NEB PRN Note: The Albuterol Sulfate Inhalation Solution is concentrated and must be diluted. Read complete instructions carefully before using. Citracal + D3 Maximum (Calcium Citrate-Vitamin D) 315-250 Mg-Unit Tab 1 Tab PO BID Dicyclomine (Dicyclomine HCl) 10 Mg Cap 10 Mg PO TID Lasix (Furosemide) 20 Mg Tab 20 Mg PO DAILY PRN Gabapentin 300 Mg Cap 300 Mg PO HS Metformin (Metformin HCl) 500 Mg Tab 1,000 Mg PO HS With meals Vitamin B-12 (Cyanocobalamin) 1,000 Mcg Tab 1,000 Mcg PO DAILY Klor-Con 10 (Potassium Chloride) 10 Meq Tab 10 Meq PO BID PRN Review of Systems Except as stated in HPI: all other systems reviewed are Neg General / Constitutional: No: Fever Eyes: No: Visual changes HENT: Positive: Rhinorrhea, Congestion, No: Headaches Cardiovascular: No: Chest Pain or Discomfort, Dyspnea on exertion Respiratory: Positive: Cough, No: Shortness of Breath Gastrointestinal: Positive: Nausea, Vomiting, Abdominal Pain, Indigestion, Loss of Appetite, No: Diarrhea, Hematemesis, Hematochezia, Changes in Bowel Habits Genitourinary: No: Urgency, Frequency, Dysuria Musculoskeletal: No: Pain Skin: No Rash Neurologic: No: Weakness, Focal Abnormalities, Headache, Change in Mentation, Slurred Speech, Sensory Disturbance Psychiatric: No: Depression Endocrine: No: Polydipsia Hematologic/Lymphatic: No: Easy Bruising Physical Exam Narrative General: The patient is a well-developed well-nourished female in no acute distress Head and Neck exam: Head is normocephalic atraumatic. Eyes: EOMI, pupils are equal round and reactive to light. Nose: Midline septum with pink mucous membranes Mouth: Dentition unremarkable. Moist mucus membranes. Posterior oropharynx is not erythematous. No tonsillar hypertrophy. Uvula midline. Airway patent. Neck: No palpable lymphadenopathy. No nuchal rigidity. No thyromegaly. Cardiovascular: Regular rate and rhythm without murmurs, gallops, or rubs. Lungs: Clear to auscultation bilaterally. No wheezes, rhonchi, or rales. Abdomen: Soft, with reported tenderness on palpation along the right upper quadrant of the abdomen and surrounding area along the midline wound that appears to be healing well postop. There is no palpable fluctuance or drainage. There is no erythema or pointing. The patient has normal bowel sounds are audible. No guarding, rebound, or rigidity. No tenderness on palpation of McBurney's point. Negative Castellon's sign. Extremities: No clubbing or cyanosis. The patient has trace pedal edema. 2+ pulses in all 4 extremities. No calf tenderness on palpation. Back: No costovertebral angle tenderness to palpation. Neurologic Exam: Grossly nonfocal. Skin Exam: No rash noted. Intact skin that is warm and dry. Data Data Last Documented VS Vital Signs Date Time Temp Pulse Resp B/P (MAP) Pulse Ox O2 Delivery O2 Flow Rate FiO2 04/26/17 23:41 104 22 169/79 (109) 100 Room Air 04/26/17 22:50 98.5 Orders Orders Electrocardiogram (04/26/17 23:03) Complete Blood Count With Diff (04/26/17 23:03) Comprehensive Metabolic Panel (04/26/17 23:03) Lipase (04/26/17 23:03) Urinalysis - C+S If Indicated (04/26/17 23:03) Magnesium (Mg) (04/26/17 23:03) Ct Abd/Pel W Iv Contrast(Rout) (04/26/17 23:03) Iv Access Insert/Monitor (04/26/17 23:03) Ecg Monitoring (04/26/17 23:03) Oximetry (04/26/17 23:03) Chest, Single Ap (04/26/17 23:03) Morphine Inj (Morphine Inj) (04/26/17 23:30) Ondansetron Inj (Zofran Inj) (04/26/17 23:30) Sodium Chlorid 0.9% 500 Ml Inj (Ns 500 M (04/26/17 23:30) Iohexol 350 Inj (Omnipaque 350 Inj) (04/27/17 00:37) Admit To Inpatient (04/27/17 ) Code Status (04/27/17 00:36) Activity Oob Ad Sherly (04/27/17 00:36) Intake + Output 06,14,22 (04/27/17 00:36) Sodium Chlor 0.9% 1000 Ml Inj (Ns 1000 M (04/27/17 00:36) Sodium Chloride 0.9% Flush (Ns Flush) (04/27/17 09:00) Sodium Chloride 0.9% Flush (Ns Flush) (04/27/17 00:45) Pantoprazole Inj (Protonix Inj) (04/27/17 09:00) Morphine Inj (Morphine Inj) (04/27/17 00:45) Morphine Inj (Morphine Inj) (04/27/17 00:45) Morphine Inj (Morphine Inj) (04/27/17 00:45) Complete Blood Count With Diff (04/28/17 06:00) Enoxaparin Inj (Lovenox Inj) (04/27/17 00:45) Scd Bilateral/Knee High MICHAEL.QSHIFT (04/27/17 00:36) Inpatient Certification (04/27/17 ) Cyclobenzaprine (Flexeril) (04/27/17 00:45) Furosemide (Lasix) (04/27/17 00:45) Gabapentin (Neurontin) (04/27/17 21:00) Lisinopril (Prinivil) (04/27/17 09:00) Metoprolol Tartrate (Lopressor) (04/27/17 09:00) (Nf) Simvastatin (04/27/17 21:00) Admit Order (Ed Use Only) (04/27/17 00:41) Labs Laboratory Tests Test 04/26/17 23:05 White Blood Count 7.4 TH/MM3 Red Blood Count 3.81 MIL/MM3 Hemoglobin 8.6 GM/DL Hematocrit 27.7 % Mean Corpuscular Volume 72.6 FL Mean Corpuscular Hemoglobin 22.6 PG Mean Corpuscular Hemoglobin Concent 31.1 % Red Cell Distribution Width 20.5 % Platelet Count 480 TH/MM3 Mean Platelet Volume 7.6 FL Neutrophils (%) (Auto) 65.6 % Lymphocytes (%) (Auto) 20.7 % Monocytes (%) (Auto) 10.0 % Eosinophils (%) (Auto) 2.6 % Basophils (%) (Auto) 1.1 % Neutrophils # (Auto) 4.9 TH/MM3 Lymphocytes # (Auto) 1.5 TH/MM3 Monocytes # (Auto) 0.7 TH/MM3 Eosinophils # (Auto) 0.2 TH/MM3 Basophils # (Auto) 0.1 TH/MM3 CBC Comment DIFF FINAL Differential Comment Blood Urea Nitrogen 9 MG/DL Creatinine 0.69 MG/DL Random Glucose 164 MG/DL Total Protein 7.2 GM/DL Albumin 3.2 GM/DL Calcium Level 8.5 MG/DL Magnesium Level 1.8 MG/DL Alkaline Phosphatase 125 U/L Aspartate Amino Transf (AST/SGOT) 11 U/L Alanine Aminotransferase (ALT/SGPT) 16 U/L Total Bilirubin 0.2 MG/DL Sodium Level 140 MEQ/L Potassium Level 3.7 MEQ/L Chloride Level 106 MEQ/L Carbon Dioxide Level 28.9 MEQ/L Anion Gap 5 MEQ/L Estimat Glomerular Filtration Rate 107 ML/MIN Lipase 407 U/L MDM Medical Decision Making Medical Screen Exam Complete: Yes Emergency Medical Condition: Yes Medical Record Reviewed: Yes Interpretation(s) Last Impressions Chest X-Ray 04/26/17 2935 Signed Impressions: Service Date/Time: Wednesday, April 26, 2017 23:33 - CONCLUSION: Normal examination. Chandra Medrano MD Differential Diagnosis Pancreatitis, versus postoperative abscess, versus obstruction Narrative Course During the course of the patients emergency department visit, the patients history, examination, and differential diagnosis were reviewed with the patient. The patient was placed on a nutrition partner with oximetry and frequent blood pressure monitoring. The patient had IV access obtained and blood work sent for analysis. The patient was initially provided normal saline a 500 mL bolus 1, morphine 4 mg IV, Zofran 4 mg IV. The patients laboratory studies were reviewed and remarkable for a white count of 7.4, hemoglobin 8.6 which is stable compared to previously at 8.2 prior to discharge on April 10, platelets 480 with 10 monocytes, CMP is remarkable for a glucose of 164, AST 11, alkaline phosphatase 125, albumin 3.2, lipase were sent Radiology studies were reviewed and remarkable for a chest x-ray that shows no acute abnormality. CT scan of the abdomen and pelvis shows postoperative change such as gastric bypass, resection of the cecum and small bowel surgery. No free air or fluid collection is seen. Status post placement of hernia mesh anterior abdominal wall. No other acute abnormality. The patient continued to have abdominal pain and intermittent retching. The patient's case was discussed with Dr. Lozano. He did agree to admit the patient for observation and continued pain and nausea control. The patients results were discussed with the patient, including the plan of care. I explained that further testing and/ or monitoring is indicated based on the patients history, examination, and/ or laboratory findings. Therefore, I recommended admission for additional evaluation. The patient expressed understanding and was agreeable with this plan. The patient was admitted to the hospital in stable condition and sent to a bed under the care of the surgeon's service. Physician Communication Physician Communication The patient's case including history, pertinent physical examination findings, and laboratory studies were discussed with Dr. Lozano. It was agreed that the patient would be admitted to the surgeon's service. Diagnosis Primary Impression: Intractable abdominal pain Admitting Information Admitting Physician Requests: Observation Theresa Deras MD Apr 26, 2017 22:51
[2017-04-26] MEDS ORDERED: MORPHINE SULFATE 4 MG/ML INJ IV PUSH ONE (23:30)
[2017-04-26] MEDS ORDERED: SODIUM CHLORID 0.9% 500 ML INJ 500 ML IV ONE (23:30)
[2017-04-26] MEDS ORDERED: ONDANSETRON HCL 4 MG/2 ML VIAL IV PUSH ONE (23:30)
[2017-04-26 23:31] LABS: AUTOMATED NEUTROPHIL # 4.9 TH/MM3 (1.8-7.7); BASOPHIL # 0.1 TH/MM3 (0-0.2); BASOPHIL % 1.1 % (0.0-2.0); EOSINOPHIL # 0.2 TH/MM3 (0-0.4); EOSINOPHIL % 2.6 % (0.0-4.0); HEMATOCRIT 27.7 % (35.0-46.0); HEMOGLOBIN 8.6 GM/DL (11.6-15.3); LYMPH % 20.7 % (9.0-44.0); LYMPHOCYTE # 1.5 TH/MM3 (1.0-4.8); MEAN CELL VOLUME 72.6 FL (80.0-100.0); MEAN CORPUSCULAR HEMOGLOBIN 22.6 PG (27.0-34.0); MEAN CORPUSCULAR HGB CONC 31.1 % (32.0-36.0); MEAN PLATELET VOLUME 7.6 FL (7.0-11.0); MONOCYTE # 0.7 TH/MM3 (0-0.9); NEUT % 65.6 % (16.0-70.0); PLATELET COUNT 480 TH/MM3 (150-450); RED BLOOD COUNT 3.81 MIL/MM3 (4.00-5.30); RED CELL DISTRIBUTION WIDTH 20.5 % (11.6-17.2); WHITE BLOOD COUNT 7.4 TH/MM3 (4.0-11.0)
[2017-04-26 23:41] VITALS: BP 169/79; PULSE 104; RESP 22; O2SAT 100
[2017-04-26 23:44] LABS: ALBUMIN 3.2 GM/DL (3.4-5.0); ALT (GPT) 16 U/L (10-53); AST (GOT) 11 U/L (15-37); BICARBONATE 28.9 MEQ/L (21.0-32.0); BLOOD UREA NITROGEN 9 MG/DL (7-18); CALCIUM 8.5 MG/DL (8.5-10.1); CHLORIDE 106 MEQ/L (98-107); CREATININE 0.69 MG/DL (0.50-1.00); GLOMERULAR FILTRATION RATE 107 ML/MIN (>89); GLUCOSE,RANDOM 164 MG/DL (74-106); LIPASE 407 U/L (73-393); MAGNESIUM 1.8 MG/DL (1.5-2.5); SODIUM (NA) 140 MEQ/L (136-145)
[2017-04-26 23:47] LABS: ALKALINE PHOSPHATASE 125 U/L (45-117); TOTAL BILIRUBIN ADULT 0.2 MG/DL (0.2-1.0); TOTAL PROTEIN 7.2 GM/DL (6.4-8.2)
--- NOTE | 2017-04-26 23:47 | RADRPT ---
EXAM DATE/TIME: 04/26/2017 23:33 [facility] COMPARISON: CHEST SINGLE AP, July 03, 2015, 3:15. INDICATIONS : Patient trying but unable to cough post recent abdominal surgery. MEDICAL HISTORY : None. SURGICAL HISTORY : Appendectomy. ENCOUNTER: Initial ACUITY: 1 day PAIN SCORE: 0/10 LOCATION: Bilateral chest FINDINGS: A single view of the chest demonstrates the lungs to be symmetrically aerated without evidence of mas s, infiltrate or effusion. The cardiomediastinal contours are unremarkable. Osseous structures are intact. CONCLUSION: Normal examination. Chandra Medrano MD on April 26, 2017 at 23:44 Board Certified Radiologist. This report was verified electronically.
[2017-04-27] VITALS (9 sets, daily range): BP systolic 114–188; BP diastolic 61–90; PULSE 84–107; RESP 18–20; TEMP 96.8–98; O2SAT 96–99
[2017-04-27] MEDS: METFORMIN HOLD POST IV CONTRAST SCH (00:35)
[2017-04-27] MEDS ORDERED: IOHEXOL 350 MG/ML 10 ML VIAL (for RAD DIAG) IVCONTRAST ONE (00:37)
[2017-04-27] MEDS ORDERED: CYCLOBENZAPRINE HCL 10 MG TAB PO PRN (00:45)
[2017-04-27] MEDS ORDERED: MORPHINE SULFATE 4 MG/ML INJ IV PUSH PRN (00:45)
[2017-04-27] MEDS ORDERED: SODIUM CHLORIDE 0.9% FLUSH 10 ML FLUSH IV FLUSH PRN (00:45)
[2017-04-27] MEDS ORDERED: FUROSEMIDE 20 MG TAB PO PRN (00:45)
--- NOTE | 2017-04-27 00:57 | RADRPT ---
EXAM DATE/TIME: 04/27/2017 00:34 [facility] COMPARISON: CT ABDOMEN & PELVIS W CONTRAST, December 04, 2013, 8:10. INDICATIONS : Abdominal pain post colon resection; possible abscess. IV CONTRAST: 70 cc Omnipaque 350 (iohexol) IV ORAL CONTRAST: No oral contrast ingested. RADIATION DOSE: 23.78 CTDIvol (mGy) ; Patient body habitus MEDICAL HISTORY : Hypertension. Hypercholesterolemia. Cerebrovascular disease.GERD, Asthma SURGICAL HISTORY : Appendectomy. Colon resection.Hysterectomy.Gastric bypass, bilateral knee replacements, Cholecystecto my ENCOUNTER: Initial ACUITY: 1 day PAIN SCALE: 7/10 LOCATION: abdomen TECHNIQUE: Volumetric scanning of the abdomen and pelvis was performed. Using automated exposure control and ad justment of the mA and/or kV according to patient size, radiation dose was kept as low as reasonably achievable to obtain optimal diagnostic quality images. DICOM format image data is available electro nically for review and comparison. FINDINGS: LOWER LUNGS: The visualized lower lungs are clear. LIVER: Homogeneous density without lesion. There is no dilation of the biliary tree. No calcified gallston es. SPLEEN: Normal size without lesion. PANCREAS: Within normal limits. KIDNEYS: Normal in size and shape. There is no mass, stone or hydronephrosis. ADRENAL GLANDS: Within normal limits. VASCULAR: There is no aortic aneurysm. BOWEL/MESENTERY: The patient is status post gastric bypass procedure, small bowel surgery with clips in the left midab domen, and resection of the cecum with clips in the right lower quadrant. The most recent surgery inv olved the cecum. There is minimal induration in the fat surrounding the proximal ascending colon. Thi s is not an unexpected finding following recent surgery. No focal fluid collection or free intracrani al air seen. ABDOMINAL WALL: Hernia mesh is seen at the lower anterior bowel wall. There is chronic change at the inferior aspect of the mesh which was present previously. This is seen as an area of thickening of the anterior infer ior mesh for RETROPERITONEUM: There is no lymphadenopathy. BLADDER: No wall thickening or mass. REPRODUCTIVE: Within normal limits. INGUINAL: There is no lymphadenopathy or hernia. MUSCULOSKELETAL: There is degenerative change in the lumbar spine. CONCLUSION: 1. Postoperative change are gastric bypass, resection of the cecum, and small bowel surgery. No free air or focal fluid collection is seen. 2. Status post placement of hernia mesh anterior abdominal wall. Chandra Medrano MD on April 27, 2017 at 0:48 Board Certified Radiologist. This report was verified electronically.
[2017-04-27] MEDS ORDERED: GLUCAGON 1 MG/ML VIAL OTHER PRN (01:00)
[2017-04-27] MEDS ORDERED: [UNRECOGNIZED DRUG - OTHER] T-DERMAL SCH (01:00)
[2017-04-27] MEDS ORDERED: DEXTROSE 50% IN WATER 50 ML VIAL(D50) IV PUSH PRN (01:00)
[2017-04-27] MEDS ORDERED: fentaNYL 50 MCG/HR PATCH T-DERMAL SCH (01:00)
[2017-04-27] MEDS: SODIUM CHLOR 0.9% 1000 ML INJ 1,000 ML IV SCH ×4 (01:06→20:27)
[2017-04-27] MEDS ORDERED: MORPHINE SULFATE 2 MG/ML INJ IV PUSH PRN ×2 (01:15)
[2017-04-27 01:19] LABS: BACTERIA, URINE RARE /hpf; BILIRUBIN, URINE NEG (NEG); BLOOD, URINE NEG (NEG); GLUCOSE,URINE NEG (NEG); KETONE, URINE NEG (NEG); MUCUS URINE FEW /lpf (OCC); NITRITE,URINE NEG (NEG); SQUAMOUS EPITHELIAL CELL URINE 4 /hpf (0-5); URINE COLOR YELLOW (YELLW/STRAW); URINE LEUKOCYTE ESTERASE NEG (NEG)
[2017-04-27] MEDS: oxyCODONE/ACETAMINOPHEN 7.5 MG/325 MG TAB PO PRN ×5 (03:13→22:03)
[2017-04-27] MEDS: SODIUM CHLORIDE 0.9% FLUSH 10 ML FLUSH IV FLUSH SCH ×2 (09:18→20:28)
[2017-04-27] MEDS: LISINOPRIL 20 MG TAB PO SCH (09:19)
[2017-04-27] MEDS: PANTOPRAZOLE SODIUM 40 MG VIAL IV PUSH SCH (09:19)
[2017-04-27] MEDS: ENOXAPARIN SODIUM 40 MG/0.4 ML SYRINGE SQ SCH (09:19)
[2017-04-27] MEDS: METOPROLOL TARTRATE 50 MG TAB PO SCH ×2 (09:19→20:28)
[2017-04-27] MEDS: INSULIN NovoLIN REGULAR SUPPLEMENTAL SCALE SQ SCH ×4 (09:20→22:03)
--- NOTE | 2017-04-27 17:18 | HHI.PR ---
Subjective Subjective Notes Pain improving +flatus, no BM yet Objective Vitals/I&O Vital Signs Date Time Temp Pulse Resp B/P (MAP) Pulse Ox O2 Delivery O2 Flow Rate FiO2 04/27/17 16:00 97.6 90 20 167/86 (113) 99 04/27/17 02:15 Room Air Labs Laboratory Tests Test 04/26/17 23:05 04/27/17 00:55 White Blood Count 7.4 Red Blood Count 3.81 Hemoglobin 8.6 Hematocrit 27.7 Mean Corpuscular Volume 72.6 Mean Corpuscular Hemoglobin 22.6 Mean Corpuscular Hemoglobin Concent 31.1 Red Cell Distribution Width 20.5 Platelet Count 480 Mean Platelet Volume 7.6 Neutrophils (%) (Auto) 65.6 Lymphocytes (%) (Auto) 20.7 Monocytes (%) (Auto) 10.0 Eosinophils (%) (Auto) 2.6 Basophils (%) (Auto) 1.1 Neutrophils # (Auto) 4.9 Lymphocytes # (Auto) 1.5 Monocytes # (Auto) 0.7 Eosinophils # (Auto) 0.2 Basophils # (Auto) 0.1 CBC Comment DIFF FINAL Differential Comment Blood Urea Nitrogen 9 Creatinine 0.69 Random Glucose 164 Total Protein 7.2 Albumin 3.2 Calcium Level 8.5 Magnesium Level 1.8 Alkaline Phosphatase 125 Aspartate Amino Transf (AST/SGOT) 11 Alanine Aminotransferase (ALT/SGPT) 16 Total Bilirubin 0.2 Sodium Level 140 Potassium Level 3.7 Chloride Level 106 Carbon Dioxide Level 28.9 Anion Gap 5 Estimat Glomerular Filtration Rate 107 Lipase 407 Urine Color YELLOW Urine Turbidity CLEAR Urine pH 6.0 Urine Specific [place] 1.021 Urine Protein TRACE Urine Glucose (UA) NEG Urine Ketones NEG Urine Occult Blood NEG Urine Nitrite NEG Urine Bilirubin NEG Urine Urobilinogen LESS THAN 2.0 Urine Leukocyte Esterase NEG Urine RBC 2 Urine WBC LESS THAN 1 Urine Squamous Epithelial Cells 4 Urine Bacteria RARE Urine Mucus FEW Microscopic Urinalysis Comment CULT NOT INDICATED Cardiovascular: Regular Lungs: Clear Abdomen: BS normal (mild tenderness to RLQ with palpation) Extremities: Perfused A/P Assessment and Plan 52yo F with abdominal pain and nausea following recent cecectomy -Will add MoM and metoclopramide -Continue with frequent ambulation -Diet as tolerated Discharge Planning D/C home tomorrow if pain controlled and tolerating diet Braden Juarez Apr 27, 2017 17:18
[2017-04-27] MEDS ORDERED: MAGNESIUM HYDROXIDE SUSP 30 ML CUP PO PRN (17:30)
[2017-04-27] MEDS: METOCLOPRAMIDE HCL SYRUP 10 MG/10 ML UDC PO SCH (20:28)
[2017-04-27] MEDS: GABAPENTIN 300 MG CAP PO SCH (20:28)
[2017-04-27] MEDS: PRAVASTATIN SOD 20 MG TAB PO SCH (21:00)
[2017-04-28] MEDS: METFORMIN HOLD POST IV CONTRAST SCH (00:35)
[2017-04-28] MEDS: SODIUM CHLOR 0.9% 1000 ML INJ 1,000 ML IV SCH ×2 (01:40→16:36)
[2017-04-28 04:17] VITALS: BP 152/69; PULSE 93; RESP 18; TEMP 97; O2SAT 97
[2017-04-28 08:00] VITALS: BP 134/75; PULSE 95; RESP 20; TEMP 96.8; O2SAT 96
[2017-04-28] MEDS: INSULIN NovoLIN REGULAR SUPPLEMENTAL SCALE SQ SCH ×4 (08:00→21:03)
[2017-04-28] MEDS: SODIUM CHLORIDE 0.9% FLUSH 10 ML FLUSH IV FLUSH SCH ×2 (09:00→21:00)
[2017-04-28] MEDS: METOPROLOL TARTRATE 50 MG TAB PO SCH ×2 (09:04→21:03)
[2017-04-28] MEDS: LISINOPRIL 20 MG TAB PO SCH (09:04)
[2017-04-28] MEDS: ENOXAPARIN SODIUM 40 MG/0.4 ML SYRINGE SQ SCH (09:04)
[2017-04-28] MEDS: PANTOPRAZOLE SODIUM 40 MG VIAL IV PUSH SCH (09:05)
[2017-04-28] MEDS: oxyCODONE/ACETAMINOPHEN 7.5 MG/325 MG TAB PO PRN ×2 (09:05→18:15)
[2017-04-28] MEDS: METOCLOPRAMIDE HCL SYRUP 10 MG/10 ML UDC PO SCH ×4 (09:05→21:03)
[2017-04-28 09:48] LABS: AUTOMATED NEUTROPHIL # 4.2 TH/MM3 (1.8-7.7); BASOPHIL % 0.5 % (0.0-2.0); EOSINOPHIL # 0.3 TH/MM3 (0-0.4); EOSINOPHIL % 4.6 % (0.0-4.0); HEMATOCRIT 29.2 % (35.0-46.0); HEMOGLOBIN 9.1 GM/DL (11.6-15.3); LYMPHOCYTE # 1.3 TH/MM3 (1.0-4.8); MEAN CELL VOLUME 74.3 FL (80.0-100.0); MEAN CORPUSCULAR HEMOGLOBIN 23.1 PG (27.0-34.0); MEAN CORPUSCULAR HGB CONC 31.1 % (32.0-36.0); MEAN PLATELET VOLUME 7.7 FL (7.0-11.0); MONO % 9.1 % (0.0-8.0); MONOCYTE # 0.6 TH/MM3 (0-0.9); NEUT % 64.8 % (16.0-70.0); PLATELET COUNT 490 TH/MM3 (150-450); RED BLOOD COUNT 3.93 MIL/MM3 (4.00-5.30); RED CELL DISTRIBUTION WIDTH 20.4 % (11.6-17.2); WHITE BLOOD COUNT 6.4 TH/MM3 (4.0-11.0)
[2017-04-28 11:19] VITALS: BP 115/55; PULSE 80; RESP 16; TEMP 98; O2SAT 100
[2017-04-28 16:00] VITALS: BP 142/69; PULSE 83; RESP 20; TEMP 96.9; O2SAT 100
[2017-04-28] MEDS ORDERED: fentaNYL 75 MCG/HR PATCH TOPICAL SCH (17:00)
[2017-04-28 20:35] VITALS: BP 135/69; PULSE 92; RESP 18; TEMP 97.3; O2SAT 97
[2017-04-28] MEDS ORDERED: REMOVE OLD PATCH T-DERMAL SCH (21:00)
[2017-04-28] MEDS: GABAPENTIN 300 MG CAP PO SCH (21:03)
[2017-04-28] MEDS: PRAVASTATIN SOD 20 MG TAB PO SCH (21:03)
--- NOTE | 2017-04-28 21:59 | HHI.PR ---
Subjective Subjective Notes Reports vomiting after dinner yesterday No vomiting today No BM Pain is about the same Objective Vitals/I&O Vital Signs Date Time Temp Pulse Resp B/P (MAP) Pulse Ox O2 Delivery O2 Flow Rate FiO2 04/28/17 20:35 97.3 92 18 135/69 (91) 97 04/28/17 18:45 Room Air Labs Laboratory Tests Test 04/28/17 08:36 White Blood Count 6.4 Red Blood Count 3.93 Hemoglobin 9.1 Hematocrit 29.2 Mean Corpuscular Volume 74.3 Mean Corpuscular Hemoglobin 23.1 Mean Corpuscular Hemoglobin Concent 31.1 Red Cell Distribution Width 20.4 Platelet Count 490 Mean Platelet Volume 7.7 Neutrophils (%) (Auto) 64.8 Lymphocytes (%) (Auto) 21.0 Monocytes (%) (Auto) 9.1 Eosinophils (%) (Auto) 4.6 Basophils (%) (Auto) 0.5 Neutrophils # (Auto) 4.2 Lymphocytes # (Auto) 1.3 Monocytes # (Auto) 0.6 Eosinophils # (Auto) 0.3 Basophils # (Auto) 0.0 CBC Comment DIFF FINAL Differential Comment Abdomen: BS normal Extremities: Perfused A/P Assessment and Plan 52yo F with abdominal pain and nausea following recent cecectomy -Dulcolax PO and CO for constipation -Increase Fentanyl patch to 75mcg -Restart home insulin dose for tighter glucose control Discharge Planning D/C home possibly tomorrow Braden Juarez Apr 28, 2017 21:59
[2017-04-28] MEDS ORDERED: BISACODYL EC 5 MG TABEC PO PRN (22:00)
[2017-04-29] MEDS: oxyCODONE/ACETAMINOPHEN 7.5 MG/325 MG TAB PO PRN ×2 (00:11→08:43)
[2017-04-29 00:17] VITALS: BP 133/76; PULSE 93; RESP 18; TEMP 97.2; O2SAT 97
[2017-04-29] MEDS: SODIUM CHLOR 0.9% 1000 ML INJ 1,000 ML IV SCH (05:40)
[2017-04-29] MEDS ORDERED: INSULIN HUMAN NPH 1,000 UNITS/10 ML VIAL SQ SCH (08:00)
[2017-04-29] MEDS: INSULIN NovoLIN REGULAR SUPPLEMENTAL SCALE SQ SCH (08:43)
[2017-04-29] MEDS: LISINOPRIL 20 MG TAB PO SCH (08:44)
[2017-04-29] MEDS: METOCLOPRAMIDE HCL SYRUP 10 MG/10 ML UDC PO SCH (08:44)
[2017-04-29] MEDS: METOPROLOL TARTRATE 50 MG TAB PO SCH (08:44)
[2017-04-29] MEDS: ENOXAPARIN SODIUM 40 MG/0.4 ML SYRINGE SQ SCH (08:44)
[2017-04-29] MEDS: PANTOPRAZOLE SODIUM 40 MG VIAL IV PUSH SCH (08:45)
[2017-04-29] MEDS: SODIUM CHLORIDE 0.9% FLUSH 10 ML FLUSH IV FLUSH SCH (08:45)
[2017-04-29] MEDS ORDERED: BISACODYL 10 MG SUPP RECTAL SCH (09:00)
[2017-04-29] MEDS ORDERED: MEDR4PAK PO (11:45)
[2017-04-29] MEDS ORDERED: FENT75DI T-DERMAL (11:56)
[2017-04-29] MEDS ORDERED: HYDR-3583 PO (11:59)
[2017-04-29 12:00] VITALS: BP 136/63; PULSE 76; RESP 19; TEMP 97.2; O2SAT 97
--- NOTE | 2017-04-29 12:07 | HHI.PR ---
Subjective Subjective Notes Pain controlled Had BM Tolerating PO intake Objective Vitals/I&O Vital Signs Date Time Temp Pulse Resp B/P (MAP) Pulse Ox O2 Delivery O2 Flow Rate FiO2 04/29/17 09:43 18 04/29/17 00:17 97.2 93 133/76 (95) 97 04/28/17 18:45 Room Air Abdomen: Other (mild tenderness to palpation in RLQ, improving) A/P Assessment and Plan 52yo F with abdominal pain and nausea following recent cecectomy -Discharge home with noted medications -Continue with frequent ambulation -Follow up in office in 2 weeks D/W Dr. Lozano Discharge Planning Braden Juarez Apr 29, 2017 12:07
== END 2017-04-29 14:28 | disposition home or self-care (01) | DRG 392 ==
LOC: NEPE 22:35 → NEDA 04-27 00:42 → N06B 04-27 05:04
PROVIDERS: ADMIT Surgery; ATTEND Surgery
DX: R11.2 Nausea with vomiting, unspecified (principal); K31.84 Gastroparesis; E11.43 Type 2 diabetes mellitus with diabetic autonomic (poly)neuropathy; Z68.42 Body mass index [BMI] 45.0-49.9, adult; G89.18 Other acute postprocedural pain; Z79.4 Long term (current) use of insulin; E66.9 Obesity, unspecified; K59.00 Constipation, unspecified; Z98.890 Other specified postprocedural states; Z86.73 Personal history of transient ischemic attack (TIA), and cerebral infarction without residual deficits; I10 Essential (primary) hypertension; E78.5 Hyperlipidemia, unspecified; G89.29 Other chronic pain; Z98.84 Bariatric surgery status; Z96.653 Presence of artificial knee joint, bilateral; G47.30 Sleep apnea, unspecified
CPT/HCPCS: 71010; 74177; 80053; 81001; 82948; 83690; 83735; 85025; 96361; 96374; 96375; C9113; J1650; J1815; J2270; J2405; J7030; J7040; Q9967

== ENCOUNTER → 2017-08-18 | Outpatient (CLI) | payer MEDICARE ==
[~2017-08-18] VITALS: Ht 167.6 cm; Wt 153.4 kg
[~2017-08-18] MED LIST changes: -ALBU.5I NEB; +CHLORHEXIDINE GLUCONATE 2 % 1 PACK (2 CLOTHS) TOPICAL PRN; +DO NOT ADM ANY ANTICOAGULANT DRUGS PRN; +FLUT1INH INH; +GLIM4TAB PO; +INSULIN HUMAN REGULAR 1,000 UNITS/10 ML VIAL SQ PRN; -IPRASOL NEB; +LACTATED RINGER'S 1000 ML IV PRN; +LIDOCAINE HCL 1% PF 5 ML SYRINGE OTHER ONE; -METF500T PO; -METO-309 PO; +METO100T PO; +METOPROLOL TARTRATE 25 MG TAB PO PRN; +ONDANSETRON HCL 4 MG/2 ML VIAL IV ONE; +PHENYLEPH/NS 1000 MCG/10 ML SYR IV ONE; +POVIDONE IODINE 5% (ANTISEPSIS KIT) 4 APPLICATIONS EACH NARE PRN; +PROPOFOL 200 MG/20 ML AMP IV ONE; +SODIUM CHLORID 0.9% 500 ML IV PRN; +SUCCINYLCHOLINE CHLORIDE 100 MG/5 ML SYRINGE IV PUSH ONE
--- NOTE | 2017-08-18 08:30 | EKG ---
Date Performed: 08/18/2017 Time Performed: 08:13:51 PTAGE: 52 years EKG: Sinus rhythm NORMAL ECG Compared to prior electrocardiogram, rate has decreased PREVIOUS TRACING : 04/12/2017 18.22 DOCTOR: Ronald Soni Interpretating Date/Time 08/18/2017 08:30:24
--- NOTE | 2017-08-18 10:37 | PD.PROCEDR ---
GI Procedure PROCEDURE PERFORMED Upper endoscopy with biopsy Colonoscopy with biopsy, polypectomy IRC for hemorrhoids, INDICATION FOR PROCEDURE Nausea, midepigastric tenderness, rectal bleeding PROCEDURE: The procedure, risks and benefits were discussed with Ms. Keen and informed consent was obtained. Anesthesia sedated her with Diprivan. She was placed in the left lateral decubitus position. EGD: The Pentax videoscope was introduced through the oropharynx and advanced to the second portion of the duodenum under direct visualization. Retroflexion was performed in the stomach. Colonoscopy: The Pentax videoscope was introduced through the rectum and advanced to small bowel beyond the surgical anastomosis on the right side of the colon. Retroflexion was performed in the rectum. Colonic prep was fair, some stool may interfere with the vision of small lesions ESTIMATED BLOOD LOSS: None SPECIMENS REMOVED: Distal esophageal biopsy from irregular Z line Erythema at the anastomosis from previous gastric bypass Small nodule at the surgical margin in the colon on the ileum side, possible lymphoid tissue 2 small polyp in the rectum COMPLICATIONS: None IMPRESSION: Esophagus, irregular Z line biopsy was done Stomach, anatomy consistent with gastric bypass with small gastric pouch, there was erythema at the surgical margin laps he was done Duodenum was normal anatomy post-gastric bypass Colon showing anatomy consistent with resection on the right colon with an anastomosis, there was a few nodules on the small bowel side possible lymphoid tissue biopsy was done Fair prep 2 small polyp in the rectum removed Moderate size internal hemorrhoid ablated with IRC 8 applications to second each Otherwise normal exam PLAN: Preparation H twice daily for 2 weeks then as needed Follow-up biopsy Colonoscopy in 5 years Flexible sigmoidoscopy with IRC in 3 weeks if bleeding continue Small meals Return to clinic in 1 month Morgan Dia MD Aug 18, 2017 10:37
[2017-08-18 11:44] VITALS: BP 101/50; PULSE 88; RESP 20; TEMP 97.6; O2SAT 97
== END ==
LOC: HSDC 07:52
PROVIDERS: ATTEND Hospitalist
DX: K62.5 Hemorrhage of anus and rectum (principal); R11.0 Nausea; K62.1 Rectal polyp; K64.0 First degree hemorrhoids; D64.9 Anemia, unspecified; K29.80 Duodenitis without bleeding; K44.9 Diaphragmatic hernia without obstruction or gangrene; K52.9 Noninfective gastroenteritis and colitis, unspecified; Z01.810 Encounter for preprocedural cardiovascular examination
CPT/HCPCS: 00813; 43239; 45380; 46930; 88305; 93005; J0330; J1815; J2370; J2405; J7120